=== PATIENT | female | born 1945 | race Caucasian/White ===

== ENCOUNTER 2017-05-17 15:15 | Inpatient (IN) | payer MEDICARE, BC ==
[~2017-05-17] VITALS: Ht 152.4 cm; Wt 61.1 kg
[~2017-05-17 15:15] MED LIST: ALPR-624 PO; CHOL2000 PO; CLON-529 PO; DULO-31 PO; ESZO2TAB PO; FLUO20CA39 PO; HYDR-3972 PO; MODA200T48 PO; TRAZ-91 PO
[2017-05-17] MEDS ORDERED: ondansetron/PF 4mg/2ml inj IV ONE ×2 (15:35→17:10)
[2017-05-17] MEDS ORDERED: morphine 8mg/ml inj. syringe IV PRN (15:35)
[2017-05-17] MEDS ORDERED: cefTRIAXone 1g/NS 100ml IVPB 100 ML IV ONE (15:35)
[2017-05-17] MEDS ORDERED: normal saline 1000ML IV soln IVB ONE ×2 (15:35→17:10)
[2017-05-17] MEDS ORDERED: morphine 4 MG/ML inj SYRINge IV PRN ×3 (15:40→17:10)
[2017-05-17 16:25] LABS: BASOPHILS # (AUTO) 0.1 X10'3 (0-0.2); BASOPHILS % (AUTO) 0.8 % (0-1); EOSINOPHILS # (AUTO) 0.1 X10'3 (0-0.9); EOSINOPHILS % (AUTO) 1.1 % (0-6); HEMATOCRIT 37.3 % (35.0-45.0); HEMOGLOBIN 12.2 g/dl (12.0-16.0); LYMPHOCYTES # (AUTO) 2.1 X10'3 (1.1-4.8); LYMPHOCYTES % (AUTO) 16.3 % (21-51); MEAN CORPUSCULAR HGB CONC 32.7 % (33.0-36.5); MEAN CORPUSCULAR VOLUME 79.4 FL (78-98); MEAN PLATELET VOLUME 9.1 FL (7.4-10.4); MONOCYTES # (AUTO) 0.8 X10'3 (0-0.9); MONOCYTES % (AUTO) 6.4 % (2-12); NEUTROPHILS # (AUTO) 9.5 X10'3 (1.8-7.7); NEUTROPHILS % (AUTO) 75.4 % (42-75); PLATELET COUNT 249 X10'3 (140-440); RED BLOOD COUNT 4.69 X10'6 (4.20-5.60); RED CELL DISTRIBUTION WIDTH 18.2 % (11.5-14.5); WHITE BLOOD COUNT 12.7 X10'3 (4.5-11.0)
[2017-05-17 16:38] LABS: ALANINE AMINOTRANSFERASE 31 U/L (12-78); ALBUMIN 3.5 G/DL (3.4-5.0); ALBUMIN/GLOBULIN RATIO 0.9 (1.1-1.5); ALKALINE PHOSPHATASE 179 IU/L (46-116); ANION GAP 11 (8-16); ASPARTATE AMINO TRANSFERASE 16 U/L (10-37); BILIRUBIN,TOTAL 0.5 MG/DL (0.1-1.0); BLOOD UREA NITROGEN 12 MG/DL (7-18); BUN/CREATININE RATIO 14.6 (6.6-38.0); CALCIUM 8.9 MG/DL (8.5-10.1); CHLORIDE 102 MMOL/L (99-107); CREATININE 0.82 MG/DL (0.40-0.90); GLUCOSE 128 MG/DL (70-104); LIPASE 59 U/L (73-393); POTASSIUM 3.9 MMOL/L (3.5-5.1); SODIUM 139 MMOL/L (135-145); TOTAL CARBON DIOXIDE 26.3 MMOL/L (24-32); TOTAL PROTEIN 7.6 G/DL (6.4-8.2); eGFR 69 ML/MIN
[2017-05-17] MEDS: morphine 4 MG/ML inj SYRINge IV PRN ×3 (17:21→22:32)
[2017-05-17] MEDS ORDERED: piperacillin/tazo 3.375gm/50ml 50 ML IV ONE (18:10)
[2017-05-17 19:19] LABS: CLARITY,URINE Clear (Clear); COLOR,URINE Yellow (Yellow); GLUCOSE, URINE Negative (Neg); KETONES,URINE Negative (Neg); LEUKOCYTE ESTERASE ,URINE Moderate (Neg); NITRITES, URINE Positive (Neg); OCCULT BLOOD,URINE Negative (Neg); PROTEIN,URINE Negative (Neg); UROBILINOGEN,URINE 0.2 E.U/dL (0.2-1.0)
[2017-05-17] MEDS ORDERED: ondansetron/PF 4mg/2ml inj IV PRN (19:20)
[2017-05-17] MEDS ORDERED: acetaminophen 325mg tablet PO PRN (19:20)
[2017-05-17] MEDS ORDERED: mag hydrox/Alum hydrox/simeth 30ml oral suspension PO PRN (19:20)
[2017-05-17] MEDS ORDERED: magnesium hydroxide 30ml (MOM) UD suspension PO PRN (19:20)
[2017-05-17 19:28] LABS: UA COLLECTION TYPE CLN CATCH MIDSTREAM
[2017-05-17 19:31] LABS: BACTERIA,URINE 4+ /HPF (Neg); RBC,URINE 0-2 /HPF (0-2); SQUAMOUS EPITHELIAL CELL,UR FEW /LPF (FEW); WBC,URINE 20-30 /HPF (0-4)
[2017-05-17] MEDS: normal saline 1000ml 1,000 ML IV SCH (19:57)
[2017-05-17] MEDS: traZODone 50mg tablet PO SCH (22:32)
[2017-05-18] VITALS (19 sets, daily range): BP systolic 107–157; BP diastolic 65–94
[2017-05-18] MEDS: piperacillin/tazo 3.375gm/50ml 50 ML IV SCH ×4 (00:39→18:00)
[2017-05-18] MEDS: ALPRAZolam 0.5mg tablet PO SCH ×4 (00:39→22:14)
[2017-05-18] MEDS ORDERED: VORT10TA PO (02:05)
[2017-05-18] MEDS ORDERED: TRIA0.2585 PO (02:05)
[2017-05-18] MEDS ORDERED: OXYC-150 PO (02:06)
[2017-05-18] MEDS: normal saline 1000ml 1,000 ML IV SCH ×2 (04:17→15:20)
[2017-05-18 06:31] LABS: BASOPHILS % (AUTO) 0.5 % (0-1); EOSINOPHILS # (AUTO) 0.2 X10'3 (0-0.9); EOSINOPHILS % (AUTO) 2.1 % (0-6); HEMOGLOBIN 10.2 g/dl (12.0-16.0); LYMPHOCYTES # (AUTO) 1.4 X10'3 (1.1-4.8); LYMPHOCYTES % (AUTO) 16.9 % (21-51); MEAN CORPUSCULAR HEMOGLOBIN 25.6 PG (27.0-31.0); MEAN PLATELET VOLUME 9.1 FL (7.4-10.4); MONOCYTES # (AUTO) 0.6 X10'3 (0-0.9); MONOCYTES % (AUTO) 7.4 % (2-12); NEUTROPHILS # (AUTO) 5.9 X10'3 (1.8-7.7); NEUTROPHILS % (AUTO) 73.1 % (42-75); PLATELET COUNT 193 X10'3 (140-440); RED CELL DISTRIBUTION WIDTH 17.2 % (11.5-14.5); WHITE BLOOD COUNT 8.1 X10'3 (4.5-11.0)
[2017-05-18 06:49] LABS: ALANINE AMINOTRANSFERASE 129 U/L (12-78); ALBUMIN 2.7 G/DL (3.4-5.0); ALBUMIN/GLOBULIN RATIO 0.8 (1.1-1.5); ALKALINE PHOSPHATASE 234 IU/L (46-116); ANION GAP 8 (8-16); ASPARTATE AMINO TRANSFERASE 172 U/L (10-37); BILIRUBIN,TOTAL 0.7 MG/DL (0.1-1.0); BLOOD UREA NITROGEN 8 MG/DL (7-18); BUN/CREATININE RATIO 11.1 (6.6-38.0); CALCIUM 8.1 MG/DL (8.5-10.1); CHLORIDE 109 MMOL/L (99-107); CREATININE 0.72 MG/DL (0.40-0.90); GLUCOSE 104 MG/DL (70-104); SODIUM 143 MMOL/L (135-145); TOTAL CARBON DIOXIDE 26.2 MMOL/L (24-32); TOTAL PROTEIN 6.2 G/DL (6.4-8.2); eGFR 80 ML/MIN
[2017-05-18] MEDS: duloxetine 30mg CAPSULE.DR PO SCH (06:58)
[2017-05-18] MEDS: FLUoxetine 20mg capsule PO SCH (06:59)
[2017-05-18] MEDS: modafinil 100mg tablet PO SCH (06:59)
[2017-05-18] MEDS ORDERED: ringers solution, lacted 1,000 ML IV ONE (11:17)
[2017-05-18] MEDS ORDERED: ringers solution, lacted 1,000 ML IV SCH (11:22)
[2017-05-18] MEDS ORDERED: ondansetron/PF 4mg/2ml inj IV PRN (11:25)
[2017-05-18] MEDS ORDERED: hydrALAZINE 20mg/ml inj. IV PRN (11:25)
[2017-05-18] MEDS ORDERED: fentaNYL/PF 50MCG/1 ML 2ML syringe IV PRN ×2 (11:25)
[2017-05-18] MEDS ORDERED: labetalol 5mg/ml 20ml inj. IV PRN (11:25)
[2017-05-18] MEDS ORDERED: morphine 4 MG/ML inj SYRINge IV PRN ×2 (11:25)
[2017-05-18] MEDS ORDERED: BUPIVAcaine/PF 2.5 mg/ml (0.25%) 30ml vial ONE (11:26)
[2017-05-18] MEDS ORDERED: ceFAZolin 1000mg inj ONE (11:26)
[2017-05-18] MEDS ORDERED: sevoflurane 250ml liquid IH ONE (11:55)
[2017-05-18] MEDS ORDERED: midazolam 2 mg/2 ml injection ONE (12:01)
[2017-05-18] MEDS ORDERED: fentaNYL/PF 50MCG/1 ML 2ML syringe ONE (12:01)
[2017-05-18] MEDS ORDERED: ondansetron/PF 4mg/2ml inj ONE (12:02)
[2017-05-18] MEDS ORDERED: rocuronium 10mg/ml inj IV ONE (12:02)
[2017-05-18] MEDS ORDERED: propofol inj 20 ML IV ONE (12:02)
[2017-05-18] MEDS ORDERED: LIDOcaine 1%/PF (10mg/ml) 5ml vial ONE (12:02)
[2017-05-18] MEDS ORDERED: dexamethasone sod phosphate 4mg/ml inj. ONE (12:02)
[2017-05-18] MEDS ORDERED: glycopyrrolate 0.2mg/ml inj ONE (12:02)
[2017-05-18] MEDS ORDERED: labetalol 5mg/ml 20ml inj. IV ONE (12:33)
[2017-05-18] MEDS ORDERED: HYDROmorphone 1 mg/ml syringe ONE (13:06)
[2017-05-18] MEDS: morphine 4 MG/ML inj SYRINge IV PRN (15:56)
[2017-05-18] MEDS: oxyCODONE/APAP 10/325mg tablet PO PRN (19:20)
[2017-05-18] MEDS: traZODone 50mg tablet PO SCH (21:02)
[2017-05-19] VITALS: BP 147/69
[2017-05-19] MEDS ORDERED: HYDROmorphone 1 mg/ml syringe IM ONE (00:05)
[2017-05-19] MEDS: piperacillin/tazo 3.375gm/50ml 50 ML IV SCH ×5 (00:37→23:52)
[2017-05-19] MEDS: temazepam 15mg capsule PO PRN ×2 (00:37→20:57)
[2017-05-19] MEDS: HYDROmorphone 2mg tablet PO PRN ×3 (00:38→23:53)
[2017-05-19] MEDS: normal saline 1000ml 1,000 ML IV SCH ×3 (01:20→15:24)
[2017-05-19] MEDS: oxyCODONE/APAP 10/325mg tablet PO PRN ×3 (01:42→15:23)
[2017-05-19 05:44] LABS: BASOPHILS % (AUTO) 0 % (0-1); EOSINOPHILS # (AUTO) 0.1 X10'3 (0-0.9); EOSINOPHILS % (AUTO) 1.2 % (0-6); HEMATOCRIT 32.7 % (35.0-45.0); HEMOGLOBIN 10.6 g/dl (12.0-16.0); LYMPHOCYTES # (AUTO) 0.9 X10'3 (1.1-4.8); LYMPHOCYTES % (AUTO) 8.7 % (21-51); MEAN CORPUSCULAR HEMOGLOBIN 26.2 PG (27.0-31.0); MEAN CORPUSCULAR HGB CONC 32.6 % (33.0-36.5); MEAN CORPUSCULAR VOLUME 80.2 FL (78-98); MEAN PLATELET VOLUME 9.5 FL (7.4-10.4); MONOCYTES # (AUTO) 0.4 X10'3 (0-0.9); MONOCYTES % (AUTO) 4.3 % (2-12); NEUTROPHILS % (AUTO) 85.8 % (42-75); PLATELET COUNT 216 X10'3 (140-440); RED BLOOD COUNT 4.07 X10'6 (4.20-5.60); RED CELL DISTRIBUTION WIDTH 17.5 % (11.5-14.5); WHITE BLOOD COUNT 10.5 X10'3 (4.5-11.0)
[2017-05-19 05:45] LABS: ALANINE AMINOTRANSFERASE 79 U/L (12-78); ALBUMIN 2.5 G/DL (3.4-5.0); ALBUMIN/GLOBULIN RATIO 0.7 (1.1-1.5); ALKALINE PHOSPHATASE 212 IU/L (46-116); ANION GAP 9 (8-16); ASPARTATE AMINO TRANSFERASE 54 U/L (10-37); BILIRUBIN,TOTAL 1.3 MG/DL (0.1-1.0); BLOOD UREA NITROGEN 7 MG/DL (7-18); BUN/CREATININE RATIO 12.5 (6.6-38.0); CALCIUM 8.2 MG/DL (8.5-10.1); CHLORIDE 104 MMOL/L (99-107); CREATININE 0.56 MG/DL (0.40-0.90); GLUCOSE 140 MG/DL (70-104); POTASSIUM 3.7 MMOL/L (3.5-5.1); SODIUM 140 MMOL/L (135-145); TOTAL CARBON DIOXIDE 26.7 MMOL/L (24-32); TOTAL PROTEIN 6.1 G/DL (6.4-8.2); eGFR > 90 ML/MIN
[2017-05-19 07:00] VITALS: BP 134/65
[2017-05-19] MEDS: ALPRAZolam 0.5mg tablet PO SCH ×3 (07:35→23:52)
[2017-05-19] MEDS: duloxetine 30mg CAPSULE.DR PO SCH (08:00)
[2017-05-19] MEDS: modafinil 100mg tablet PO SCH (08:00)
[2017-05-19] MEDS: FLUoxetine 20mg capsule PO SCH (08:00)
[2017-05-19] MEDS: morphine 4 MG/ML inj SYRINge IV PRN (13:49)
[2017-05-19] MEDS ORDERED: oxyCODONE/APAP 10/325mg tablet PO PRN (18:30)
[2017-05-19] MEDS ORDERED: HYDROmorphone 2mg tablet PO PRN ×2 (18:50→18:55)
[2017-05-19 20:00] VITALS: BP 144/83
[2017-05-19] MEDS: traZODone 50mg tablet PO SCH (20:44)
[2017-05-20] VITALS: BP 131/72
[2017-05-20] MEDS: normal saline 1000ml 1,000 ML IV SCH ×3 (02:00→23:19)
[2017-05-20 04:46] LABS: BASOPHILS % (AUTO) 0.3 % (0-1); EOSINOPHILS # (AUTO) 0.1 X10'3 (0-0.9); EOSINOPHILS % (AUTO) 1.5 % (0-6); HEMATOCRIT 32.6 % (35.0-45.0); HEMOGLOBIN 10.4 g/dl (12.0-16.0); LYMPHOCYTES # (AUTO) 0.9 X10'3 (1.1-4.8); LYMPHOCYTES % (AUTO) 10.2 % (21-51); MEAN CORPUSCULAR HEMOGLOBIN 25.6 PG (27.0-31.0); MEAN CORPUSCULAR HGB CONC 31.9 % (33.0-36.5); MEAN CORPUSCULAR VOLUME 80.2 FL (78-98); MEAN PLATELET VOLUME 9.5 FL (7.4-10.4); MONOCYTES # (AUTO) 0.4 X10'3 (0-0.9); NEUTROPHILS # (AUTO) 7.8 X10'3 (1.8-7.7); PLATELET COUNT 222 X10'3 (140-440); RED BLOOD COUNT 4.07 X10'6 (4.20-5.60); RED CELL DISTRIBUTION WIDTH 17.8 % (11.5-14.5); WHITE BLOOD COUNT 9.3 X10'3 (4.5-11.0)
[2017-05-20 05:34] LABS: ALANINE AMINOTRANSFERASE 54 U/L (12-78); ALBUMIN 2.3 G/DL (3.4-5.0); ALBUMIN/GLOBULIN RATIO 0.6 (1.1-1.5); ALKALINE PHOSPHATASE 238 IU/L (46-116); ANION GAP 7 (8-16); ASPARTATE AMINO TRANSFERASE 28 U/L (10-37); BILIRUBIN,TOTAL 1.4 MG/DL (0.1-1.0); BLOOD UREA NITROGEN 6 MG/DL (7-18); BUN/CREATININE RATIO 10.2 (6.6-38.0); CALCIUM 8.4 MG/DL (8.5-10.1); CHLORIDE 105 MMOL/L (99-107); CREATININE 0.59 MG/DL (0.40-0.90); GLUCOSE 110 MG/DL (70-104); POTASSIUM 3.7 MMOL/L (3.5-5.1); SODIUM 141 MMOL/L (135-145); TOTAL CARBON DIOXIDE 28.8 MMOL/L (24-32); TOTAL PROTEIN 6.1 G/DL (6.4-8.2); eGFR > 90 ML/MIN
[2017-05-20] MEDS: HYDROmorphone 2mg tablet PO PRN ×4 (05:45→20:32)
[2017-05-20] MEDS: piperacillin/tazo 3.375gm/50ml 50 ML IV SCH ×4 (05:45→23:18)
[2017-05-20 07:37] VITALS: BP 134/78
[2017-05-20] MEDS: FLUoxetine 20mg capsule PO SCH (08:00)
[2017-05-20] MEDS: modafinil 100mg tablet PO SCH (08:00)
[2017-05-20] MEDS: duloxetine 30mg CAPSULE.DR PO SCH (08:00)
[2017-05-20] MEDS: ALPRAZolam 0.5mg tablet PO SCH ×3 (08:55→23:18)
[2017-05-20 11:33] VITALS: BP 135/72
[2017-05-20] MEDS ORDERED: lactulose 20gm/30ml cup PO ONE (11:35)
[2017-05-20] MEDS: methylnaltrexone br 12mg/0.6ml inj***SubQ only SQ SCH (12:04)
[2017-05-20 18:00] VITALS: BP 136/83
[2017-05-20] MEDS: lactobacillus rhamnosus 10,000 MMU CELLS/CAPSULE PO SCH (19:27)
[2017-05-20] MEDS: lactulose 20gm/30ml cup PO SCH (19:27)
[2017-05-20] MEDS: traZODone 50mg tablet PO SCH (20:31)
[2017-05-20] MEDS: oxyCODONE/APAP 10/325mg tablet PO PRN (21:52)
[2017-05-21] VITALS: BP 131/76
[2017-05-21] MEDS: HYDROmorphone 2mg tablet PO PRN ×5 (00:50→20:36)
[2017-05-21] MEDS: temazepam 15mg capsule PO PRN (00:50)
[2017-05-21 05:31] LABS: BASOPHILS % (AUTO) 0.3 % (0-1); EOSINOPHILS # (AUTO) 0.1 X10'3 (0-0.9); EOSINOPHILS % (AUTO) 1.8 % (0-6); HEMATOCRIT 31.2 % (35.0-45.0); HEMOGLOBIN 10.1 g/dl (12.0-16.0); LYMPHOCYTES # (AUTO) 1.3 X10'3 (1.1-4.8); LYMPHOCYTES % (AUTO) 16.4 % (21-51); MEAN CORPUSCULAR HGB CONC 32.5 % (33.0-36.5); MEAN PLATELET VOLUME 9.2 FL (7.4-10.4); MONOCYTES # (AUTO) 0.5 X10'3 (0-0.9); MONOCYTES % (AUTO) 6.5 % (2-12); PLATELET COUNT 205 X10'3 (140-440); RED BLOOD COUNT 3.89 X10'6 (4.20-5.60); RED CELL DISTRIBUTION WIDTH 17.2 % (11.5-14.5)
[2017-05-21 05:44] LABS: ALANINE AMINOTRANSFERASE 43 U/L (12-78); ALBUMIN 2.2 G/DL (3.4-5.0); ALBUMIN/GLOBULIN RATIO 0.6 (1.1-1.5); ALKALINE PHOSPHATASE 267 IU/L (46-116); ANION GAP 9 (8-16); ASPARTATE AMINO TRANSFERASE 21 U/L (10-37); BLOOD UREA NITROGEN 6 MG/DL (7-18); BUN/CREATININE RATIO 11.1 (6.6-38.0); CALCIUM 8.1 MG/DL (8.5-10.1); CHLORIDE 106 MMOL/L (99-107); CREATININE 0.54 MG/DL (0.40-0.90); GLUCOSE 112 MG/DL (70-104); SODIUM 142 MMOL/L (135-145); TOTAL CARBON DIOXIDE 26.9 MMOL/L (24-32); TOTAL PROTEIN 6.1 G/DL (6.4-8.2); eGFR > 90 ML/MIN
[2017-05-21] MEDS: piperacillin/tazo 3.375gm/50ml 50 ML IV SCH ×3 (05:47→17:15)
[2017-05-21] MEDS ORDERED: magnesium 2GM in 50ml NS 50 ML IV PRN (06:15)
[2017-05-21] MEDS ORDERED: magnesium 4gm in 100ml NS 100 ML IV PRN (06:15)
[2017-05-21] MEDS ORDERED: magnesium Cl slow-release 64mg tablet PO PRN (06:15)
[2017-05-21] MEDS ORDERED: potassium Cl 20 mEq SR tablet PO PRN (06:15)
[2017-05-21] MEDS ORDERED: potassium Cl 40MEQ/NS 500ml 500 ML IV PRN ×2 (06:15)
[2017-05-21 07:02] VITALS: BP 146/88
[2017-05-21] MEDS: FLUoxetine 20mg capsule PO SCH (07:44)
[2017-05-21] MEDS: lactulose 20gm/30ml cup PO SCH (07:44)
[2017-05-21] MEDS: duloxetine 30mg CAPSULE.DR PO SCH (07:44)
[2017-05-21] MEDS: modafinil 100mg tablet PO SCH (07:44)
[2017-05-21] MEDS: lactobacillus rhamnosus 10,000 MMU CELLS/CAPSULE PO SCH ×2 (07:56→20:32)
[2017-05-21] MEDS: potassium Cl 20 mEq SR tablet PO PRN ×3 (07:56→15:56)
[2017-05-21] MEDS: ALPRAZolam 0.5mg tablet PO SCH ×2 (07:56→15:56)
[2017-05-21] MEDS ORDERED: methylnaltrexone br 12mg/0.6ml inj***SubQ only SQ SCH (08:00)
[2017-05-21 10:50] VITALS: BP 159/80
[2017-05-21] MEDS: normal saline 1000ml 1,000 ML IV SCH ×2 (13:35→23:20)
[2017-05-21 18:00] VITALS: BP 170/70
[2017-05-21] MEDS: cloNIDine 0.1 mg tablet PO PRN (20:32)
[2017-05-21] MEDS: traZODone 50mg tablet PO SCH (20:32)
[2017-05-22] VITALS: BP 112/78
[2017-05-22] MEDS: piperacillin/tazo 3.375gm/50ml 50 ML IV SCH ×5 (00:03→23:37)
[2017-05-22] MEDS: oxyCODONE/APAP 10/325mg tablet PO PRN ×4 (01:14→17:47)
[2017-05-22] MEDS: normal saline 1000ml 1,000 ML IV SCH ×2 (05:11→16:34)
[2017-05-22 05:23] LABS: BASOPHILS % (AUTO) 0.5 % (0-1); EOSINOPHILS # (AUTO) 0.3 X10'3 (0-0.9); HEMATOCRIT 29.9 % (35.0-45.0); HEMOGLOBIN 9.8 g/dl (12.0-16.0); LYMPHOCYTES # (AUTO) 1.3 X10'3 (1.1-4.8); LYMPHOCYTES % (AUTO) 19.2 % (21-51); MEAN CORPUSCULAR HEMOGLOBIN 26.1 PG (27.0-31.0); MEAN CORPUSCULAR HGB CONC 32.9 % (33.0-36.5); MEAN CORPUSCULAR VOLUME 79.4 FL (78-98); MEAN PLATELET VOLUME 8.7 FL (7.4-10.4); MONOCYTES # (AUTO) 0.6 X10'3 (0-0.9); MONOCYTES % (AUTO) 8.9 % (2-12); NEUTROPHILS # (AUTO) 4.6 X10'3 (1.8-7.7); NEUTROPHILS % (AUTO) 67.4 % (42-75); PLATELET COUNT 239 X10'3 (140-440); RED BLOOD COUNT 3.76 X10'6 (4.20-5.60); RED CELL DISTRIBUTION WIDTH 17.6 % (11.5-14.5); WHITE BLOOD COUNT 6.9 X10'3 (4.5-11.0)
[2017-05-22 05:49] LABS: ALANINE AMINOTRANSFERASE 42 U/L (12-78); ALBUMIN 2.2 G/DL (3.4-5.0); ALBUMIN/GLOBULIN RATIO 0.6 (1.1-1.5); ALKALINE PHOSPHATASE 377 IU/L (46-116); ANION GAP 8 (8-16); ASPARTATE AMINO TRANSFERASE 32 U/L (10-37); BILIRUBIN,TOTAL 1.1 MG/DL (0.1-1.0); BLOOD UREA NITROGEN 4 MG/DL (7-18); BUN/CREATININE RATIO 7.1 (6.6-38.0); CALCIUM 8.5 MG/DL (8.5-10.1); CHLORIDE 107 MMOL/L (99-107); CREATININE 0.56 MG/DL (0.40-0.90); GLUCOSE 92 MG/DL (70-104); MAGNESIUM 1.8 MG/DL (1.5-2.4); POTASSIUM 4.3 MMOL/L (3.5-5.1); SODIUM 142 MMOL/L (135-145); TOTAL CARBON DIOXIDE 26.8 MMOL/L (24-32); eGFR > 90 ML/MIN
[2017-05-22] MEDS: FLUoxetine 20mg capsule PO SCH ×2 (08:00→08:10)
[2017-05-22] MEDS: modafinil 100mg tablet PO SCH (08:00)
[2017-05-22] MEDS: methylnaltrexone br 12mg/0.6ml inj***SubQ only SQ SCH (08:00)
[2017-05-22] MEDS: duloxetine 30mg CAPSULE.DR PO SCH ×2 (08:00→08:10)
[2017-05-22] MEDS: ALPRAZolam 0.5mg tablet PO SCH ×3 (08:09→16:32)
[2017-05-22] MEDS: lactobacillus rhamnosus 10,000 MMU CELLS/CAPSULE PO SCH ×2 (08:10→19:43)
[2017-05-22 08:30] VITALS: BP 147/81
[2017-05-22 12:26] VITALS: BP 154/60
[2017-05-22] MEDS: morphine 4 MG/ML inj SYRINge IV PRN (16:39)
[2017-05-22 18:00] VITALS: BP 142/95
[2017-05-22] MEDS: traZODone 50mg tablet PO SCH (20:48)
[2017-05-22] MEDS: temazepam 15mg capsule PO PRN (21:58)
[2017-05-23] VITALS: BP 161/86
[2017-05-23] MEDS: oxyCODONE/APAP 10/325mg tablet PO PRN ×3 (03:23→16:52)
[2017-05-23] MEDS: normal saline 1000ml 1,000 ML IV SCH (05:36)
[2017-05-23] MEDS: piperacillin/tazo 3.375gm/50ml 50 ML IV SCH ×4 (05:36→23:55)
[2017-05-23 05:47] LABS: MAGNESIUM 1.7 MG/DL (1.5-2.4); POTASSIUM 3.6 MMOL/L (3.5-5.1)
[2017-05-23] MEDS: ALPRAZolam 0.5mg tablet PO SCH ×3 (07:40→14:40)
[2017-05-23] MEDS: lactobacillus rhamnosus 10,000 MMU CELLS/CAPSULE PO SCH ×2 (07:40→20:30)
[2017-05-23] MEDS: duloxetine 30mg CAPSULE.DR PO SCH (07:41)
[2017-05-23] MEDS: FLUoxetine 20mg capsule PO SCH (07:44)
[2017-05-23] MEDS: modafinil 100mg tablet PO SCH (07:44)
[2017-05-23 08:00] VITALS: BP 174/64
[2017-05-23] MEDS ORDERED: oxyCODONE/APAP 10/325mg tablet PO STA (08:18)
[2017-05-23] MEDS ORDERED: bisacodyl 10mg suppository rectal RC PRN ×2 (17:55)
[2017-05-23] MEDS ORDERED: mineral oil 133ml enema RC PRN (17:55)
[2017-05-23] MEDS ORDERED: magnesium citrate 296ml oral solution PO ONE (18:00)
[2017-05-23 18:55] VITALS: BP 142/72
[2017-05-23] MEDS: traZODone 50mg tablet PO SCH (20:30)
[2017-05-23] MEDS: clonazePAM 1mg tablet PO SCH (20:30)
[2017-05-23] MEDS: diatr meglu/diatrizoate 30ml oral sol.-(3 dose) bottle PO SCH (20:31)
[2017-05-23] MEDS: temazepam 15mg capsule PO PRN (20:42)
[2017-05-24] VITALS (18 sets, daily range): BP systolic 129–163; BP diastolic 70–100
[2017-05-24] MEDS: oxyCODONE/APAP 10/325mg tablet PO PRN ×4 (01:14→15:48)
[2017-05-24 05:37] LABS: MAGNESIUM 1.9 MG/DL (1.5-2.4); POTASSIUM 3.2 MMOL/L (3.5-5.1)
[2017-05-24] MEDS: piperacillin/tazo 3.375gm/50ml 50 ML IV SCH ×3 (06:31→20:37)
[2017-05-24] MEDS: diatr meglu/diatrizoate 30ml oral sol.-(3 dose) bottle PO SCH ×2 (06:50→09:35)
[2017-05-24] MEDS: lactobacillus rhamnosus 10,000 MMU CELLS/CAPSULE PO SCH ×2 (07:22→20:37)
[2017-05-24] MEDS: clonazePAM 1mg tablet PO SCH ×2 (07:23→20:37)
[2017-05-24] MEDS: duloxetine 30mg CAPSULE.DR PO SCH (07:28)
[2017-05-24] MEDS: FLUoxetine 20mg capsule PO SCH (07:40)
[2017-05-24] MEDS: modafinil 100mg tablet PO SCH (07:40)
[2017-05-24] MEDS: methylnaltrexone br 12mg/0.6ml inj***SubQ only SQ SCH (07:41)
[2017-05-24] MEDS ORDERED: iohexol 300mg/ml 100ml inj. ONE (09:43)
[2017-05-24 10:43] LABS: BASOPHILS % (AUTO) 0.4 % (0-1); EOSINOPHILS # (AUTO) 0.1 X10'3 (0-0.9); EOSINOPHILS % (AUTO) 2.7 % (0-6); HEMATOCRIT 30.5 % (35.0-45.0); LYMPHOCYTES # (AUTO) 0.9 X10'3 (1.1-4.8); LYMPHOCYTES % (AUTO) 19.3 % (21-51); MEAN CORPUSCULAR HEMOGLOBIN 25.8 PG (27.0-31.0); MEAN CORPUSCULAR HGB CONC 32.9 % (33.0-36.5); MEAN CORPUSCULAR VOLUME 78.5 FL (78-98); MEAN PLATELET VOLUME 7.8 FL (7.4-10.4); MONOCYTES # (AUTO) 0.4 X10'3 (0-0.9); MONOCYTES % (AUTO) 8.5 % (2-12); NEUTROPHILS # (AUTO) 3.4 X10'3 (1.8-7.7); NEUTROPHILS % (AUTO) 69.1 % (42-75); PLATELET COUNT 277 X10'3 (140-440); RED BLOOD COUNT 3.88 X10'6 (4.20-5.60); RED CELL DISTRIBUTION WIDTH 17.9 % (11.5-14.5); WHITE BLOOD COUNT 4.9 X10'3 (4.5-11.0)
[2017-05-24 10:57] LABS: ALBUMIN 2.3 G/DL (3.4-5.0); ANION GAP 10 (8-16); BLOOD UREA NITROGEN 4 MG/DL (7-18); BUN/CREATININE RATIO 6.6 (6.6-38.0); CALCIUM 8.8 MG/DL (8.5-10.1); CHLORIDE 103 MMOL/L (99-107); CREATININE 0.61 MG/DL (0.40-0.90); GLUCOSE 161 MG/DL (70-104); POTASSIUM 3.3 MMOL/L (3.5-5.1); SODIUM 141 MMOL/L (135-145); TOTAL CARBON DIOXIDE 27.9 MMOL/L (24-32); eGFR > 90 ML/MIN
[2017-05-24] MEDS ORDERED: morphine 2 MG/ML inj. syringe IV PRN (11:55)
[2017-05-24] MEDS: cloNIDine 0.1 mg tablet PO PRN (12:34)
[2017-05-24] MEDS ORDERED: magnesium 2GM in 50ml NS 50 ML IV PRN (13:50)
[2017-05-24] MEDS ORDERED: magnesium 4gm in 100ml NS 100 ML IV PRN (13:50)
[2017-05-24] MEDS ORDERED: potassium Cl 40MEQ/NS 500ml 500 ML IV PRN ×2 (13:50)
[2017-05-24] MEDS ORDERED: magnesium Cl slow-release 64mg tablet PO PRN (13:50)
[2017-05-24] MEDS ORDERED: potassium Cl 20 mEq SR tablet PO PRN (13:50)
[2017-05-24] MEDS ORDERED: midazolam 2 mg/2 ml injection ONE (16:34)
[2017-05-24] MEDS ORDERED: fentaNYL/PF 50MCG/1 ML 2ML syringe ONE ×2 (16:34→17:38)
[2017-05-24] MEDS: metroNIDAZOLE-Flagyl 500mg/NS 100 ML IV SCH (18:28)
[2017-05-24] MEDS: temazepam 15mg capsule PO PRN (20:37)
[2017-05-24] MEDS: traZODone 50mg tablet PO SCH (20:37)
[2017-05-25] VITALS: BP 145/61
[2017-05-25] MEDS: piperacillin/tazo 3.375gm/50ml 50 ML IV SCH ×5 (00:41→23:46)
[2017-05-25] MEDS: oxyCODONE/APAP 10/325mg tablet PO PRN ×4 (01:16→20:16)
[2017-05-25] MEDS: metroNIDAZOLE-Flagyl 500mg/NS 100 ML IV SCH ×3 (01:30→17:48)
[2017-05-25] MEDS: temazepam 15mg capsule PO PRN (02:10)
[2017-05-25 05:34] LABS: MAGNESIUM 2.2 MG/DL (1.5-2.4); POTASSIUM 4.2 MMOL/L (3.5-5.1)
[2017-05-25 07:07] VITALS: BP 121/76
[2017-05-25] MEDS: modafinil 100mg tablet PO SCH (08:00)
[2017-05-25] MEDS: FLUoxetine 20mg capsule PO SCH (08:00)
[2017-05-25] MEDS: duloxetine 30mg CAPSULE.DR PO SCH (08:00)
[2017-05-25] MEDS: lactobacillus rhamnosus 10,000 MMU CELLS/CAPSULE PO SCH ×2 (08:15→20:10)
[2017-05-25] MEDS: clonazePAM 1mg tablet PO SCH ×2 (08:15→20:10)
[2017-05-25 11:19] VITALS: BP 167/80
[2017-05-25 12:15] LABS: ALBUMIN 2.8 G/DL (3.4-5.0); ANION GAP 13 (8-16); BLOOD UREA NITROGEN 7 MG/DL (7-18); BUN/CREATININE RATIO 8.3 (6.6-38.0); CALCIUM 9.5 MG/DL (8.5-10.1); CHLORIDE 104 MMOL/L (99-107); CREATININE 0.84 MG/DL (0.40-0.90); GLUCOSE 132 MG/DL (70-104); SODIUM 142 MMOL/L (135-145); TOTAL CARBON DIOXIDE 25.5 MMOL/L (24-32); eGFR 67 ML/MIN
[2017-05-25 20:00] VITALS: BP 133/43
[2017-05-25] MEDS: traZODone 50mg tablet PO SCH (20:10)
[2017-05-26] VITALS: BP 119/80
[2017-05-26] MEDS: metroNIDAZOLE-Flagyl 500mg/NS 100 ML IV SCH ×4 (00:17→23:54)
[2017-05-26] MEDS: oxyCODONE/APAP 10/325mg tablet PO PRN (01:46)
[2017-05-26 06:09] LABS: MAGNESIUM 2.1 MG/DL (1.5-2.4); POTASSIUM 3.6 MMOL/L (3.5-5.1)
[2017-05-26 08:00] VITALS: BP 124/74
[2017-05-26] MEDS: modafinil 100mg tablet PO SCH (08:00)
[2017-05-26] MEDS: duloxetine 30mg CAPSULE.DR PO SCH (08:00)
[2017-05-26] MEDS: FLUoxetine 20mg capsule PO SCH (08:00)
[2017-05-26] MEDS: piperacillin/tazo 3.375gm/50ml 50 ML IV SCH ×5 (08:02→23:11)
[2017-05-26] MEDS: clonazePAM 1mg tablet PO SCH ×3 (08:02→20:23)
[2017-05-26] MEDS: methylnaltrexone br 12mg/0.6ml inj***SubQ only SQ SCH (08:02)
[2017-05-26] MEDS: lactobacillus rhamnosus 10,000 MMU CELLS/CAPSULE PO SCH ×2 (08:02→20:23)
[2017-05-26] MEDS ORDERED: HYDROmorphone/NS 1 mg/ml CADD 50 ML IV SCH (10:55)
[2017-05-26 11:00] VITALS: BP 139/82
[2017-05-26] MEDS ORDERED: CADD PCA waste documentation MC SCH (11:10)
[2017-05-26] MEDS ORDERED: naloxone 0.4 mg/ml inj IV PRN (11:15)
[2017-05-26] MEDS: MORPHINE CADD 5 MG/ML 50ML IV SCH ×6 (13:30→23:00)
[2017-05-26 18:30] VITALS: BP 132/70
[2017-05-26] MEDS: docusate sod 100mg capsule PO SCH (20:00)
[2017-05-26] MEDS: traZODone 50mg tablet PO SCH (20:23)
[2017-05-26] MEDS: temazepam 15mg capsule PO PRN (22:52)
[2017-05-27 00:02] VITALS: BP 132/70
[2017-05-27] MEDS: MORPHINE CADD 5 MG/ML 50ML IV SCH ×12 (01:00→23:00)
[2017-05-27] MEDS: cloNIDine 0.1 mg tablet PO PRN (01:14)
[2017-05-27 04:44] LABS: BASOPHILS % (AUTO) 0.7 % (0-1); EOSINOPHILS # (AUTO) 0.3 X10'3 (0-0.9); EOSINOPHILS % (AUTO) 6.2 % (0-6); HEMATOCRIT 30.5 % (35.0-45.0); HEMOGLOBIN 9.7 g/dl (12.0-16.0); LYMPHOCYTES # (AUTO) 1.4 X10'3 (1.1-4.8); MEAN CORPUSCULAR HEMOGLOBIN 25.5 PG (27.0-31.0); MEAN CORPUSCULAR HGB CONC 31.8 % (33.0-36.5); MEAN CORPUSCULAR VOLUME 80.2 FL (78-98); MEAN PLATELET VOLUME 8.3 FL (7.4-10.4); MONOCYTES # (AUTO) 0.4 X10'3 (0-0.9); MONOCYTES % (AUTO) 7.7 % (2-12); NEUTROPHILS % (AUTO) 58.4 % (42-75); PLATELET COUNT 299 X10'3 (140-440); RED CELL DISTRIBUTION WIDTH 17.3 % (11.5-14.5); WHITE BLOOD COUNT 5.2 X10'3 (4.5-11.0)
[2017-05-27 04:51] LABS: PROTHROMBIN TIME 10.5 SECONDS (9.0-12.0)
[2017-05-27 05:07] LABS: ALBUMIN 2.4 G/DL (3.4-5.0); ANION GAP 10 (8-16); BLOOD UREA NITROGEN 10 MG/DL (7-18); BUN/CREATININE RATIO 17.5 (6.6-38.0); CALCIUM 8.6 MG/DL (8.5-10.1); CHLORIDE 108 MMOL/L (99-107); CREATININE 0.57 MG/DL (0.40-0.90); GLUCOSE 111 MG/DL (70-104); MAGNESIUM 2.2 MG/DL (1.5-2.4); POTASSIUM 3.4 MMOL/L (3.5-5.1); SODIUM 143 MMOL/L (135-145); eGFR > 90 ML/MIN
[2017-05-27] MEDS: potassium Cl 20 mEq SR tablet PO PRN ×2 (05:31→13:23)
[2017-05-27] MEDS: piperacillin/tazo 3.375gm/50ml 50 ML IV SCH ×3 (06:32→17:11)
[2017-05-27 06:53] VITALS: BP 142/74
[2017-05-27] MEDS: modafinil 100mg tablet PO SCH (08:00)
[2017-05-27] MEDS: duloxetine 30mg CAPSULE.DR PO SCH (08:00)
[2017-05-27] MEDS: FLUoxetine 20mg capsule PO SCH (08:00)
[2017-05-27] MEDS: docusate sod 100mg capsule PO SCH ×2 (08:00→20:00)
[2017-05-27] MEDS: lactobacillus rhamnosus 10,000 MMU CELLS/CAPSULE PO SCH ×2 (08:41→20:32)
[2017-05-27] MEDS: clonazePAM 1mg tablet PO SCH ×3 (08:41→20:33)
[2017-05-27] MEDS: metroNIDAZOLE-Flagyl 500mg/NS 100 ML IV SCH (08:41)
[2017-05-27 11:03] VITALS: BP 103/55
[2017-05-27] MEDS ORDERED: TRINTELLIX PO ×2 (16:34→16:35)
[2017-05-27] MEDS ORDERED: CYAN-19 PO (16:36)
[2017-05-27] MEDS: metroNIDAZOLE 500mg tablet PO SCH ×2 (17:10→23:33)
[2017-05-27] MEDS: nystatin 15 GM powder TP SCH ×2 (17:11→20:33)
[2017-05-27 17:18] LABS: CLARITY,URINE CLEAR (Clear); COLOR,URINE YELLOW (Yellow); GLUCOSE, URINE NEGATIVE (Neg); KETONES,URINE NEGATIVE (Neg); LEUKOCYTE ESTERASE ,URINE NEGATIVE (Neg); NITRITES, URINE NEGATIVE (Neg); OCCULT BLOOD,URINE NEGATIVE (Neg); PROTEIN,URINE NEGATIVE (Neg); UROBILINOGEN,URINE 0.2 E.U/dL (0.2-1.0)
[2017-05-27 17:25] LABS: UA COLLECTION TYPE NON-SPECIFIED
[2017-05-27] MEDS ORDERED: magnesium 2GM in 50ml NS 50 ML IV PRN (17:45)
[2017-05-27] MEDS ORDERED: potassium Cl 20 mEq SR tablet PO PRN ×2 (17:45)
[2017-05-27] MEDS ORDERED: magnesium Cl slow-release 64mg tablet PO PRN (17:45)
[2017-05-27] MEDS ORDERED: magnesium 4gm in 100ml NS 100 ML IV PRN (17:45)
[2017-05-27] MEDS ORDERED: potassium Cl 40MEQ/NS 500ml 500 ML IV PRN ×2 (17:45)
[2017-05-27 20:00] VITALS: BP 144/87
[2017-05-27] MEDS: traZODone 50mg tablet PO SCH (20:32)
[2017-05-27] MEDS: TRINTELLIX 10MG TABLET PO SCH (20:33)
[2017-05-27] MEDS ORDERED: temazepam 15mg capsule PO SCH (21:00)
[2017-05-27 23:50] VITALS: BP 147/71
[2017-05-28] MEDS: MORPHINE CADD 5 MG/ML 50ML IV SCH ×6 (01:00→11:00)
[2017-05-28] MEDS: metroNIDAZOLE 500mg tablet PO SCH ×2 (07:46→14:56)
[2017-05-28] MEDS: lactobacillus rhamnosus 10,000 MMU CELLS/CAPSULE PO SCH ×2 (07:47→19:56)
[2017-05-28] MEDS: cyanocobalamin 500mcg tablet PO SCH (07:47)
[2017-05-28] MEDS: clonazePAM 1mg tablet PO SCH ×2 (07:47→19:55)
[2017-05-28] MEDS: docusate sod 100mg capsule PO SCH ×2 (07:47→20:00)
[2017-05-28] MEDS: modafinil 100mg tablet PO SCH (07:48)
[2017-05-28] MEDS: vitamin D (cholecalciferol) 1,000 unit tablet PO SCH (07:48)
[2017-05-28] MEDS: methylnaltrexone br 12mg/0.6ml inj***SubQ only SQ SCH (07:49)
[2017-05-28] MEDS: nystatin 15 GM powder TP SCH ×2 (07:49→19:57)
[2017-05-28 08:00] VITALS: BP 139/79
[2017-05-28] MEDS ORDERED: vortioxetine HBr 10mg tablet PO SCH (08:00)
[2017-05-28] MEDS ORDERED: oxyCODONE/APAP 10/325mg tablet PO PRN (12:20)
[2017-05-28 19:00] VITALS: BP 140/91
[2017-05-28] MEDS: temazepam 15mg capsule PO PRN (19:55)
[2017-05-28] MEDS: oxyCODONE/APAP 10/325mg tablet PO PRN (19:56)
[2017-05-28] MEDS: TRINTELLIX 10MG TABLET PO SCH (19:56)
[2017-05-28] MEDS: traZODone 50mg tablet PO SCH (19:59)
[2017-05-29] VITALS: BP 148/108
[2017-05-29] MEDS ORDERED: LORazepam 2 mg/ml vial IV ONE (01:55)
[2017-05-29] MEDS: oxyCODONE/APAP 10/325mg tablet PO PRN ×5 (04:45→22:42)
[2017-05-29] MEDS: docusate sod 100mg capsule PO SCH ×2 (08:00→20:20)
[2017-05-29] MEDS: lactobacillus rhamnosus 10,000 MMU CELLS/CAPSULE PO SCH ×2 (08:01→20:20)
[2017-05-29] MEDS: metroNIDAZOLE 500mg tablet PO SCH ×3 (08:01→15:51)
[2017-05-29] MEDS: clonazePAM 1mg tablet PO SCH (08:02)
[2017-05-29] MEDS: cyanocobalamin 500mcg tablet PO SCH (08:02)
[2017-05-29] MEDS: nystatin 15 GM powder TP SCH ×2 (08:03→20:20)
[2017-05-29] MEDS: vitamin D (cholecalciferol) 1,000 unit tablet PO SCH (08:03)
[2017-05-29] MEDS: modafinil 100mg tablet PO SCH (08:03)
[2017-05-29 08:13] VITALS: BP 154/79
[2017-05-29 11:23] VITALS: BP 136/74
[2017-05-29] MEDS ORDERED: TRINTELLIX 10MG TABLET PO SCH ×2 (14:25→14:32)
[2017-05-29] MEDS ORDERED: morphine 2 MG/ML inj. syringe IV PRN (16:50)
[2017-05-29] MEDS: LORazepam 1 MG tablet PO PRN ×2 (17:09→22:42)
[2017-05-29 19:50] VITALS: BP 132/67
[2017-05-29] MEDS: temazepam 15mg capsule PO PRN (20:19)
[2017-05-29] MEDS: traZODone 50mg tablet PO SCH (20:20)
[2017-05-29] MEDS: diatr meglu/diatrizoate 30ml oral sol.-(3 dose) bottle PO SCH (20:20)
[2017-05-29] MEDS: ciprofloxacin lact 400MG/200ML 200 ML IV SCH (20:21)
[2017-05-29 23:45] VITALS: BP 145/88
[2017-05-30] MEDS: metroNIDAZOLE 500mg tablet PO SCH ×2 (00:02→08:02)
[2017-05-30] MEDS: metroNIDAZOLE-Flagyl 500mg/NS 100 ML IV SCH ×2 (00:02→08:00)
[2017-05-30] MEDS: diatr meglu/diatrizoate 30ml oral sol.-(3 dose) bottle PO SCH (07:00)
[2017-05-30] MEDS: docusate sod 100mg capsule PO SCH (07:48)
[2017-05-30] MEDS: methylnaltrexone br 12mg/0.6ml inj***SubQ only SQ SCH (08:00)
[2017-05-30] MEDS: ciprofloxacin lact 400MG/200ML 200 ML IV SCH (08:02)
[2017-05-30] MEDS: lactobacillus rhamnosus 10,000 MMU CELLS/CAPSULE PO SCH (08:02)
[2017-05-30] MEDS: cyanocobalamin 500mcg tablet PO SCH (08:03)
[2017-05-30] MEDS: modafinil 100mg tablet PO SCH (08:03)
[2017-05-30] MEDS: vitamin D (cholecalciferol) 1,000 unit tablet PO SCH (08:03)
[2017-05-30] MEDS: LORazepam 1 MG tablet PO PRN (08:04)
[2017-05-30] MEDS: nystatin 15 GM powder TP SCH (08:04)
[2017-05-30 08:09] LABS: BLOOD UREA NITROGEN 9 MG/DL (7-18); CREATININE 0.71 MG/DL (0.40-0.90); eGFR 82 ML/MIN
[2017-05-30] MEDS: oxyCODONE/APAP 10/325mg tablet PO PRN ×2 (08:11→14:27)
[2017-05-30 08:20] VITALS: BP 139/90
[2017-05-30] MEDS ORDERED: iohexol 300mg/ml 100ml inj. ONE (11:13)
[2017-05-30 12:19] VITALS: BP 151/76
[2017-05-30] MEDS ORDERED: METR500T4 PO (13:59)
[2017-05-30] MEDS ORDERED: LEVO500T2 PO (13:59)
== END 2017-05-30 16:00 | disposition home or self-care (01) | DRG 339 ==
LOC: ER 15:15 → ED HOLD 19:20 → SUR 3N 05-18 15:47
PROVIDERS: ADMIT Internal Medicine; ATTEND Internal Medicine
PROC: 0DTJ4ZZ Resection of Appendix, Percutaneous Endoscopic Approach (ICD-10-PCS; principal; 2017-05-18 11:55)
PROC: 0W9J30Z Drainage of Pelvic Cavity with Drainage Device, Percutaneous Approach (ICD-10-PCS; 2017-05-24)
PROC: BW211ZZ Computerized Tomography (CT Scan) of Abdomen and Pelvis using Low Osmolar Contrast (ICD-10-PCS; 2017-05-24)
PROC: 0W9G30Z Drainage of Peritoneal Cavity with Drainage Device, Percutaneous Approach (ICD-10-PCS; 2017-05-24)
PROC: BW211ZZ Computerized Tomography (CT Scan) of Abdomen and Pelvis using Low Osmolar Contrast (ICD-10-PCS; 2017-05-30)
DX: K35.2 Acute appendicitis with generalized peritonitis (principal); K91.872 Postprocedural seroma of a digestive system organ or structure following a digestive system procedure; E87.6 Hypokalemia; G89.29 Other chronic pain; M79.7 Fibromyalgia; F32.9 Major depressive disorder, single episode, unspecified; F41.9 Anxiety disorder, unspecified; I10 Essential (primary) hypertension; Y83.8 Other surgical procedures as the cause of abnormal reaction of the patient, or of later complication, without mention of misadventure at the time of the procedure; Z90.11 Acquired absence of right breast and nipple; Z98.84 Bariatric surgery status; Z79.899 Other long term (current) drug therapy; Z85.3 Personal history of malignant neoplasm of breast; Z85.43 Personal history of malignant neoplasm of ovary; Y92.89 Other specified places as the place of occurrence of the external cause
CPT/HCPCS: 36415; 49406; 74021; 74176; 74177; 74181; 80048; 80053; 81001; 81003; 82565; 83690; 83735; 84132; 84520; 85025; 85610; 87070; 87088; 88304; 96365; 96367; 96375; 99152; 99153; 99285; A6212; A6213; A6257; A6258; A7000; C1729; C1758; J0690; J0696; J0744; J1100; J1170; J2001; J2060; J2212; J2250; J2270; J2405; J2543; J2704; J3010; J3420; J3480; J3490; J7030; J7120; Q9963; Q9967

== ENCOUNTER 2017-08-05 11:15 | Emergency (ER) | payer MEDICARE, BC ==
[~2017-08-05] VITALS: Ht 152.4 cm; Wt 52.0 kg
[~2017-08-05 11:15] MED LIST changes: -ALPR-624 PO; +CYAN-19 PO; +DICY10CA88 PO; -DULO-31 PO; -ESZO2TAB PO; -FLUO20CA39 PO; -HYDR-3972 PO; -MODA200T48 PO; +OXYC-150 PO; +TRIA0.2585 PO; +TRINTELLIX PO; +VORT10TA PO
[2017-08-05 12:17] VITALS: BP 145/80
[2017-08-05] MEDS ORDERED: GABA-532 PO (12:29)
[2017-08-05] MEDS ORDERED: HYDR-565 PO (12:32)
[2017-08-05] MEDS ORDERED: ketorolac trometh inj. 60 MG/2 ML VIAL IM ONE (12:35)
[2017-08-05] MEDS ORDERED: oxyCODONE/APAP 10/325mg tablet PO ONE (12:35)
[2017-08-05] MEDS ORDERED: gabapentin 300mg capsule PO ONE (12:35)
== END 2017-08-05 13:10 | disposition home or self-care (01) ==
LOC: ER 11:15
DX: M54.2 Cervicalgia (principal); G89.29 Other chronic pain; E11.9 Type 2 diabetes mellitus without complications; Z86.73 Personal history of transient ischemic attack (TIA), and cerebral infarction without residual deficits; Z85.3 Personal history of malignant neoplasm of breast; Z98.84 Bariatric surgery status; Z98.890 Other specified postprocedural states; Z90.49 Acquired absence of other specified parts of digestive tract; Z79.899 Other long term (current) drug therapy
CPT/HCPCS: 96372; 99284; J1885

== ENCOUNTER 2017-09-18 13:04 | Emergency (ER) | payer MEDICARE, BC ==
[~2017-09-18] VITALS: Ht 152.4 cm; Wt 58.0 kg
[~2017-09-18 13:04] MED LIST changes: +GABA-532 PO
[2017-09-18] MEDS ORDERED: aspirin 81mg tab.chew PO ONE (13:45)
[2017-09-18] MEDS ORDERED: morphine 4 MG/ML inj SYRINge IV ONE (13:45)
[2017-09-18] MEDS ORDERED: nitroGLYCERIN 0.4mg SUBLingual tab SL PRN (13:45)
[2017-09-18 14:20] LABS: BASOPHILS % (AUTO) 0.5 % (0-1); EOSINOPHILS # (AUTO) 0.1 X10'3 (0-0.9); EOSINOPHILS % (AUTO) 2.7 % (0-6); HEMATOCRIT 31.8 % (35.0-45.0); HEMOGLOBIN 10.1 g/dl (12.0-16.0); LYMPHOCYTES # (AUTO) 1.7 X10'3 (1.1-4.8); LYMPHOCYTES % (AUTO) 34.6 % (21-51); MEAN CORPUSCULAR HEMOGLOBIN 23.9 PG (27.0-31.0); MEAN CORPUSCULAR HGB CONC 31.8 % (33.0-36.5); MEAN CORPUSCULAR VOLUME 75.2 FL (78-98); MEAN PLATELET VOLUME 8.1 FL (7.4-10.4); MONOCYTES # (AUTO) 0.5 X10'3 (0-0.9); MONOCYTES % (AUTO) 9.6 % (2-12); NEUTROPHILS # (AUTO) 2.5 X10'3 (1.8-7.7); NEUTROPHILS % (AUTO) 52.6 % (42-75); PLATELET COUNT 309 X10'3 (140-440); RED BLOOD COUNT 4.23 X10'6 (4.20-5.60); RED CELL DISTRIBUTION WIDTH 20.8 % (11.5-14.5); WHITE BLOOD COUNT 4.8 X10'3 (4.5-11.0)
[2017-09-18 14:31] LABS: PARTIAL THROMBOPLASTIN TIME 25 SECONDS (22-32); PROTHROMBIN TIME 10.2 SECONDS (9.0-12.0)
[2017-09-18 14:35] LABS: ALANINE AMINOTRANSFERASE 78 U/L (12-78); ALBUMIN 3.5 G/DL (3.4-5.0); ALBUMIN/GLOBULIN RATIO 0.9 (1.1-1.5); ALKALINE PHOSPHATASE 308 IU/L (46-116); ANION GAP 5 (8-16); ASPARTATE AMINO TRANSFERASE 30 U/L (10-37); BILIRUBIN,TOTAL 0.3 MG/DL (0.1-1.0); BLOOD UREA NITROGEN 12 MG/DL (7-18); BUN/CREATININE RATIO 18.5 (6.6-38.0); CALCIUM 8.8 MG/DL (8.5-10.1); CHLORIDE 99 MMOL/L (99-107); CREATININE 0.65 MG/DL (0.40-0.90); GLUCOSE 111 MG/DL (70-104); POTASSIUM 4.5 MMOL/L (3.5-5.1); SODIUM 134 MMOL/L (135-145); TOTAL CARBON DIOXIDE 29.6 MMOL/L (24-32); TOTAL PROTEIN 7.5 G/DL (6.4-8.2); eGFR 90 ML/MIN
[2017-09-18 14:42] LABS: ANISOCYTOSIS 3+; PLATELET ESTIMATE NORMAL
[2017-09-18 14:43] LABS: HYPOCHROMASIA 2+; MICROCYTOSIS 1+
[2017-09-18 15:51] VITALS: BP 122/71
== END 2017-09-18 16:07 | disposition home or self-care (01) ==
LOC: ER 13:04
DX: S92.901A Unspecified fracture of right foot, initial encounter for closed fracture (principal); F41.9 Anxiety disorder, unspecified; R07.89 Other chest pain; E11.9 Type 2 diabetes mellitus without complications; G89.29 Other chronic pain; Z86.73 Personal history of transient ischemic attack (TIA), and cerebral infarction without residual deficits; Z85.3 Personal history of malignant neoplasm of breast; Z90.49 Acquired absence of other specified parts of digestive tract; Z98.84 Bariatric surgery status; Z98.890 Other specified postprocedural states; Z90.89 Acquired absence of other organs; Z79.899 Other long term (current) drug therapy; W08.XXXA Fall from other furniture, initial encounter; Y93.89 Activity, other specified; Y92.89 Other specified places as the place of occurrence of the external cause; Y99.8 Other external cause status
CPT/HCPCS: 36415; 71045; 73600; 73630; 80053; 82553; 84484; 85025; 85610; 85730; 93005; 96374; 99285; A6449; J2270; L3260

== ENCOUNTER 2018-05-26 22:15 | Emergency (ER) | payer MEDICARE, BC ==
[~2018-05-26] VITALS: Ht 152.4 cm; Wt 59.1 kg
[2018-05-26 22:21] VITALS: BP 159/93
[2018-05-26] MEDS ORDERED: nitroGLYCERIN 0.4mg SUBLingual tab SL PRN (22:35)
[2018-05-26] MEDS ORDERED: aspirin 81mg tab.chew PO ONE (22:35)
--- NOTE | 2018-05-26 22:42 | NUR ---
Pt is very anxious. Her is also here in the ER and she wants to be with him. She did say that once her blood is drawn she is going to go to his side. She refused to get into a gown, she allowed me to put the monitors on her though.
--- NOTE | 2018-05-26 23:12 | NUR ---
PT REFUSING TO STAY IN HER ROOM - MULTIPLE STAFF, RN, , LAB, XRAY HAVE BEEN LOOKING FOR PT AND EVERYTIME WE TURN AROUND SHE IS GONE - SHE IS KINDLY ASKED TO STAY IN HER ROOM SO THAT WE CAN MONITOR HER CONDITION HOWEVER SHE STATES, "I CAN'T LEAVE HIM" (HER IN CURRENTLY ALSO IN ER IN ANTOTHER ROOM) EXPLAINED TO PT THAT WE DON'T HAVE THE CAPABILITY TO MONITOR HER HEART WHILE SHE IS WALKING BACK AND FORTH FROM ROOM TO ROOM. SHE DESIRES TO LEAVE AMA - NOTIFIED. HE IS CURRENTLY IN A STERILE PROCEDURE IN ANOTHER ROOM. WILL START AMA PAPERWORK.
[2018-05-26 23:38] LABS: BASOPHILS # (AUTO) 0.1 X10'3 (0-0.2); BASOPHILS % (AUTO) 1.7 % (0-1); EOSINOPHILS % (AUTO) 0.4 % (0-6); HEMATOCRIT 30.5 % (35.0-45.0); HEMOGLOBIN 9.1 g/dl (12.0-16.0); LYMPHOCYTES # (AUTO) 1.3 X10'3 (1.1-4.8); LYMPHOCYTES % (AUTO) 19.5 % (21-51); MEAN CORPUSCULAR HEMOGLOBIN 20.2 PG (27.0-31.0); MEAN CORPUSCULAR HGB CONC 29.7 g/dL (33.0-36.5); MEAN PLATELET VOLUME 8.1 FL (7.4-10.4); MONOCYTES # (AUTO) 0.4 X10'3 (0-0.9); MONOCYTES % (AUTO) 6.7 % (2-12); NEUTROPHILS # (AUTO) 4.7 X10'3 (1.8-7.7); NEUTROPHILS % (AUTO) 71.7 % (42-75); PLATELET COUNT 296 X10'3 (140-440); RED BLOOD COUNT 4.49 X10'6 (4.20-5.60); RED CELL DISTRIBUTION WIDTH 19.4 % (11.5-14.5); WHITE BLOOD COUNT 6.5 X10'3 (4.5-11.0)
[2018-05-26 23:52] LABS: ALANINE AMINOTRANSFERASE 100 U/L (12-78); ALBUMIN 3.8 G/DL (3.4-5.0); ALKALINE PHOSPHATASE 196 IU/L (46-116); ANION GAP 6 (8-16); ASPARTATE AMINO TRANSFERASE 210 U/L (10-37); BILIRUBIN,TOTAL 0.4 MG/DL (0.1-1.0); BLOOD UREA NITROGEN 18 MG/DL (7-18); BUN/CREATININE RATIO 27.3 (6.6-38.0); CHLORIDE 104 MMOL/L (99-107); CREATININE 0.66 MG/DL (0.40-0.90); GLUCOSE 110 MG/DL (70-104); POTASSIUM 4.1 MMOL/L (3.5-5.1); SODIUM 139 MMOL/L (135-145); TOTAL CARBON DIOXIDE 28.8 MMOL/L (24-32); TOTAL PROTEIN 7.7 G/DL (6.4-8.2); eGFR 89 ML/MIN
[2018-05-27] LABS: MAGNESIUM 2.1 MG/DL (1.5-2.4)
[2018-05-27 00:20] LABS: ETHANOL < 0.010 GM/DL (0.0-0.010)
--- NOTE | 2018-05-27 00:38 | NUR ---
PT WALKED OUT OF ER
[2018-05-27 05:36] LABS: PLATELET ESTIMATE NORMAL
[2018-05-27 05:37] LABS: ANISOCYTOSIS 2+; HYPOCHROMASIA 2+; MICROCYTOSIS 2+
== END 2018-05-27 00:40 | disposition left against medical advice (07) ==
LOC: ER 22:16
DX: R07.9 Chest pain, unspecified (principal); I10 Essential (primary) hypertension; E11.9 Type 2 diabetes mellitus without complications; G89.29 Other chronic pain; Z86.73 Personal history of transient ischemic attack (TIA), and cerebral infarction without residual deficits; F17.200 Nicotine dependence, unspecified, uncomplicated; Z90.49 Acquired absence of other specified parts of digestive tract; Z90.89 Acquired absence of other organs; Z98.51 Tubal ligation status; Z79.899 Other long term (current) drug therapy
CPT/HCPCS: 36415; 71045; 80053; 80320; 83735; 83880; 84484; 85025; 93005; 99284

== ENCOUNTER 2018-06-19 22:07 | Inpatient (IN) | payer MEDICARE, BC | END 2018-06-25 16:35 | disposition home or self-care (01) | LOC: ICU 2S 06-20 02:16 → ER 22:07 → SUR 3N 06-21 16:32 | PROC: 0DTF0ZZ Resection of Right Large Intestine, Open Approach (ICD-10-PCS; principal; 2018-06-20 01:49) | DX: K56.2 Volvulus (principal); I31.3 Pericardial effusion (noninflammatory); R06.03 Acute respiratory distress; C50.919 Malignant neoplasm of unspecified site of unspecified female breast; I67.9 Cerebrovascular disease, unspecified ==

== ENCOUNTER 2018-12-21 16:14 | Inpatient (IN) | payer MEDICARE, BC ==
[~2018-12-21] VITALS: Ht 152.4 cm; Wt 49.5 kg
[~2018-12-21 16:14] MED LIST changes: +BACL10TA PO; -CHOL2000 PO; +COL100C PO; -CYAN-19 PO; -DICY10CA88 PO; +ESZO3TAB66 PO; +FER325T PO; -GABA-532 PO; +MAGN400O6 PO; +PANT-47 PO; +POLY17PO36 PO; +TRAZ-219 PO; -TRAZ-91 PO; -TRIA0.2585 PO; -TRINTELLIX PO; -VORT10TA PO
[2018-12-21] MEDS ORDERED: aspirin 81mg tab.chew PO ONE (16:25)
[2018-12-21 16:43] LABS: BASOPHILS # (AUTO) 0.1 X10'3 (0-0.2); BASOPHILS % (AUTO) 1.1 % (0-1); EOSINOPHILS # (AUTO) 0.1 X10'3 (0-0.9); HEMATOCRIT 44.4 % (35.0-45.0); HEMOGLOBIN 15.1 g/dl (12.0-16.0); LYMPHOCYTES # (AUTO) 1.5 X10'3 (1.1-4.8); LYMPHOCYTES % (AUTO) 26.1 % (21-51); MEAN CORPUSCULAR HEMOGLOBIN 32.5 PG (27.0-31.0); MEAN CORPUSCULAR VOLUME 95.5 FL (78-98); MEAN PLATELET VOLUME 8.7 FL (7.4-10.4); MONOCYTES # (AUTO) 0.4 X10'3 (0-0.9); MONOCYTES % (AUTO) 7.3 % (2-12); NEUTROPHILS # (AUTO) 3.6 X10'3 (1.8-7.7); NEUTROPHILS % (AUTO) 63.5 % (42-75); PLATELET COUNT 180 X10'3 (140-440); RED BLOOD COUNT 4.65 X10'6 (4.20-5.60); WHITE BLOOD COUNT 5.7 X10'3 (4.5-11.0)
--- NOTE | 2018-12-21 16:50 | NUR ---
PATIENT TOOK TWO FULL STRENGTH ASPIRINS ALREADY TODAY
[2018-12-21 17:00] LABS: ALANINE AMINOTRANSFERASE 69 U/L (12-78); ALBUMIN 3.4 G/DL (3.4-5.0); ALBUMIN/GLOBULIN RATIO 0.9 (1.1-1.5); ALKALINE PHOSPHATASE 168 IU/L (46-116); ANION GAP 6 (8-16); ASPARTATE AMINO TRANSFERASE 26 U/L (10-37); BILIRUBIN,TOTAL 0.2 MG/DL (0.1-1.0); BLOOD UREA NITROGEN 15 MG/DL (7-18); BUN/CREATININE RATIO 15.3 (6.6-38.0); CALCIUM 8.7 MG/DL (8.5-10.1); CHLORIDE 104 MMOL/L (99-107); CREATININE 0.98 MG/DL (0.40-0.90); GLUCOSE 92 MG/DL (70-104); POTASSIUM 4.1 MMOL/L (3.5-5.1); SODIUM 140 MMOL/L (135-145); TOTAL CARBON DIOXIDE 30.5 MMOL/L (24-32); TOTAL PROTEIN 7.1 G/DL (6.4-8.2); eGFR 56 ML/MIN
[2018-12-21 17:09] LABS: MAGNESIUM 2.2 MG/DL (1.5-2.4)
[2018-12-21] MEDS ORDERED: aspirin 81mg tab.chew PO SCH (17:20)
[2018-12-21 17:34] LABS: CLARITY,URINE CLOUDY (Clear); COLOR,URINE STRAW (Yellow); GLUCOSE, URINE NEGATIVE (Neg); KETONES,URINE NEGATIVE (Neg); LEUKOCYTE ESTERASE ,URINE MODERATE (Neg); NITRITES, URINE POSITIVE (Neg); OCCULT BLOOD,URINE NEGATIVE (Neg); PH,URINE 7.5 (4.8-8.0); PROTEIN,URINE NEGATIVE (Neg); UROBILINOGEN,URINE 0.2 E.U/dL (0.2-1.0)
[2018-12-21 17:39] LABS: UA COLLECTION TYPE NON-SPECIFIED
[2018-12-21 17:44] LABS: BACTERIA,URINE 4+ /HPF (Neg); MUCUS STRANDS NONE SEEN /LPF (Neg); RBC,URINE NONE SEEN /HPF (0-2); SQUAMOUS EPITHELIAL CELL,UR FEW /LPF (FEW); WBC CLUMPS,URINE FEW /HPF (NEGATIVE); WBC,URINE 20-30 /HPF (0-4)
[2018-12-21] MEDS ORDERED: nitrofuran/nitrofuran macrocrysal 100 MG capsule PO ONE (18:25)
[2018-12-21] MEDS ORDERED: LORazepam 1 MG tablet PO ONE (18:30)
[2018-12-21] MEDS ORDERED: nitroGLYCERIN 0.4mg SUBLingual tab SL PRN ×2 (18:35→20:05)
[2018-12-21] MEDS ORDERED: magnesium hydroxide 30ml (MOM) UD suspension PO PRN (19:50)
[2018-12-21] MEDS ORDERED: mag hydrox/Alum hydrox/simeth 30ml oral suspension PO PRN (19:50)
[2018-12-21] MEDS ORDERED: acetaminophen 325mg tablet PO PRN (19:50)
[2018-12-21] MEDS ORDERED: ondansetron/PF 4mg/2ml inj IV PRN (19:50)
[2018-12-21] MEDS ORDERED: FERR325T28 PO (19:55)
[2018-12-21] MEDS ORDERED: ESTR42.53 VG ×2 (19:59)
[2018-12-21] MEDS ORDERED: MODA200T48 PO (19:59)
[2018-12-21] MEDS ORDERED: oxyCODONE/APAP 10/325mg tablet PO PRN (20:05)
[2018-12-21] MEDS ORDERED: metoprolol tartrate 1mg/ml inj IV PRN (20:05)
[2018-12-21] MEDS ORDERED: regadenoson 0.4mg/5ml syringe IV ONE (20:05)
[2018-12-21] MEDS ORDERED: aminophylline 250mg/10ml inj. IV PRN (20:05)
[2018-12-21] MEDS ORDERED: zolpidem 5mg tablet PO PRN (20:15)
--- NOTE | 2018-12-21 20:19 | NUR ---
Patient in ED to be transferred to room PCU 3016B. I have received report from DARIANA Perry and had the opportunity to ask questions and assume patient care.
[2018-12-21 20:20] VITALS: BP 147/76
[2018-12-21] MEDS: heparin, porcine 5000 units/ml vial SQ SCH (20:59)
[2018-12-21] MEDS ORDERED: traZODone 150mg tablet PO SCH (21:00)
[2018-12-21] MEDS: baclofen 10mg tablet PO SCH (21:00)
[2018-12-21] MEDS ORDERED: cloNIDine 0.1 mg tablet PO SCH (21:00)
[2018-12-21] MEDS ORDERED: traZODone 50mg tablet PO SCH (21:00)
--- NOTE | 2018-12-21 21:30 | NUR ---
Patient refused to get DARTed by nurse stating, " I'm too tired because she has been up since 0300 in the morning trying to get her power turned back on." Will delegate task to day shift nurse.
[2018-12-21 23:00] VITALS: BP 119/64
[2018-12-22] VITALS (10 sets, daily range): BP systolic 107–128; BP diastolic 56–72
--- NOTE | 2018-12-22 06:00 | NUR ---
Patient in room PCU 3016. I have received report from Jennifer WESTBROOK and had the opportunity to ask questions and assume patient care.
--- NOTE | 2018-12-22 06:15 | NUR ---
Problems reprioritized. Patient report given, questions answered & plan of care reviewed with DARIANA Gerard. DNR band signed with day shift nurse and placed on patient.
[2018-12-22 06:48] LABS: BASOPHILS # (AUTO) 0.1 X10'3 (0-0.2); BASOPHILS % (AUTO) 1.5 % (0-1); EOSINOPHILS # (AUTO) 0.2 X10'3 (0-0.9); EOSINOPHILS % (AUTO) 4.4 % (0-6); HEMATOCRIT 43.2 % (35.0-45.0); HEMOGLOBIN 14.7 g/dl (12.0-16.0); LYMPHOCYTES # (AUTO) 1.8 X10'3 (1.1-4.8); LYMPHOCYTES % (AUTO) 37.8 % (21-51); MEAN CORPUSCULAR HEMOGLOBIN 32.9 PG (27.0-31.0); MEAN CORPUSCULAR VOLUME 96.6 FL (78-98); MONOCYTES # (AUTO) 0.4 X10'3 (0-0.9); MONOCYTES % (AUTO) 7.6 % (2-12); NEUTROPHILS # (AUTO) 2.3 X10'3 (1.8-7.7); NEUTROPHILS % (AUTO) 48.7 % (42-75); PLATELET COUNT 163 X10'3 (140-440); RED BLOOD COUNT 4.47 X10'6 (4.20-5.60); RED CELL DISTRIBUTION WIDTH 14.3 % (11.5-14.5); WHITE BLOOD COUNT 4.8 X10'3 (4.5-11.0)
[2018-12-22 06:52] LABS: ALANINE AMINOTRANSFERASE 60 U/L (12-78); ALBUMIN 3.4 G/DL (3.4-5.0); ALKALINE PHOSPHATASE 151 IU/L (46-116); ANION GAP 7 (8-16); ASPARTATE AMINO TRANSFERASE 26 U/L (10-37); BILIRUBIN,TOTAL 0.3 MG/DL (0.1-1.0); BLOOD UREA NITROGEN 14 MG/DL (7-18); BUN/CREATININE RATIO 20.9 (6.6-38.0); CALCIUM 8.9 MG/DL (8.5-10.1); CHLORIDE 103 MMOL/L (99-107); CREATININE 0.67 MG/DL (0.40-0.90); GLUCOSE 84 MG/DL (70-104); POTASSIUM 4.2 MMOL/L (3.5-5.1); SODIUM 140 MMOL/L (135-145); TOTAL CARBON DIOXIDE 30.4 MMOL/L (24-32); TOTAL PROTEIN 6.8 G/DL (6.4-8.2); eGFR 87 ML/MIN
--- NOTE | 2018-12-22 07:26 | NUR ---
Page to Dr Sommer re: Room 9115M Lisa Messina BG 84, NPO for Lexiscan, diet controlled at home, do you want to start hyperglycemia protocol? Skylar [phone]
[2018-12-22] MEDS ORDERED: ferrous sulfate 325mg tablet PO SCH (08:00)
[2018-12-22] MEDS ORDERED: modafinil 100mg tablet PO SCH (08:00)
[2018-12-22] MEDS: heparin, porcine 5000 units/ml vial SQ SCH (08:00)
[2018-12-22] MEDS ORDERED: docusate sod 100mg capsule PO SCH (08:00)
[2018-12-22] MEDS: baclofen 10mg tablet PO SCH ×2 (08:28→13:00)
[2018-12-22] MEDS ORDERED: glucagon, human recombinant 1mg kit SUBCUT PRN (09:20)
[2018-12-22] MEDS ORDERED: dextrose 50%-water 50ml dispensing syringe IV PRN ×2 (09:20)
[2018-12-22] MEDS ORDERED: insulin Lispro (HumaLOG) vial - multi-dose SQ SCH (09:20)
[2018-12-22] MEDS ORDERED: dextrose ORAL solution 15 GM/59 ML bottle PO PRN ×2 (09:20)
[2018-12-22] MEDS ORDERED: MESSAGE TO PHARMACY PO ONE (09:20)
[2018-12-22 09:47] LABS: CHOL/HDL RATIO 2.2 (0.00-4.99); CHOLESTEROL 180 MG/DL (0-200); HDL CHOLESTEROL 82 MG/DL (35-60); LDL CHOLESTEROL 80 MG/DL (50-100); TRIGLYCERIDES 101 MG/DL (20-135)
[2018-12-22 10:17] LABS: HEMOGLOBIN A1C 5.9 % (4.5-6.2)
[2018-12-22 11:03] LABS: H PYLORI ANTIBODY NEGATIVE (Neg)
--- NOTE | 2018-12-22 11:04 | NUR ---
Page to Dr Sommer re: Room 5437B JOSE Mcnamara results back, can she eat? Skylar [phone]
[2018-12-22] MEDS ORDERED: FLU VACC QS2019-20 36MOS UP/PF 60 MCG/0.5 ML SYRINGE IMVAC ONE (12:45)
[2018-12-22] MEDS ORDERED: ASPI-611 PO (13:01)
[2018-12-22] MEDS ORDERED: LEVO250T58 PO (13:01)
[2018-12-22] MEDS ORDERED: METH1TAB32 PO (13:01)
--- NOTE | 2018-12-22 14:05 | NUR ---
Discussed discharge instructions with patient at this time. Tele box removed, IV removed, catheter intact. Pt belongings in suitcase, pt ambulated to lobby with RN stand-by assist. Pt home in private vehicle driven by one of her friends. Pt's prescriptions called to [facility] on [address] per pt request. Instructed patient to call unit in case of any questions regarding discharge or prescriptions, phone number written on patient's discharge packet.
[2018-12-22] MEDS ORDERED: insulin glargine (Lantus) pen - multi-dose SQ SCH (21:00)
[2018-12-24] MEDS ORDERED: ESTRADIOL VG SCH (08:00)
== END 2018-12-22 14:12 | disposition home or self-care (01) | DRG 313 ==
LOC: ER 16:15 → ED HOLD 20:12 → PCU 3S 20:20
PROVIDERS: ADMIT Internal Medicine; ATTEND Family Medicine
PROC: 3E02340 Introduction of Influenza Vaccine into Muscle, Percutaneous Approach (ICD-10-PCS; principal; 2018-12-22)
PROC: 4A02XM4 Measurement of Cardiac Total Activity, External Approach (ICD-10-PCS; 2018-12-22)
PROC: 3E033HZ Introduction of Radioactive Substance into Peripheral Vein, Percutaneous Approach (ICD-10-PCS; 2018-12-22)
DX: R07.89 Other chest pain (principal); N17.9 Acute kidney failure, unspecified; N30.00 Acute cystitis without hematuria; E11.9 Type 2 diabetes mellitus without complications; F41.1 Generalized anxiety disorder; M54.2 Cervicalgia; I20.9 Angina pectoris, unspecified; F17.210 Nicotine dependence, cigarettes, uncomplicated; F32.9 Major depressive disorder, single episode, unspecified; F43.20 Adjustment disorder, unspecified; G89.4 Chronic pain syndrome; I10 Essential (primary) hypertension; Z85.3 Personal history of malignant neoplasm of breast; Z86.73 Personal history of transient ischemic attack (TIA), and cerebral infarction without residual deficits; Z90.49 Acquired absence of other specified parts of digestive tract; Z98.84 Bariatric surgery status; Z23 Encounter for immunization; Z98.51 Tubal ligation status
CPT/HCPCS: 36415; 71045; 78452; 80053; 80061; 81001; 82948; 83036; 83735; 83880; 84443; 84484; 85025; 86677; 87077; 87081; 87088; 87186; 93005; 93017; 99285; A9500; G0378; J0280; J1644; J1815; J2785; Q2037

== ENCOUNTER 2019-01-09 17:31 | Emergency (ER) | payer MEDICARE, BC ==
[~2019-01-09] VITALS: Ht 152.4 cm; Wt 49.1 kg
[~2019-01-09 17:31] MED LIST changes: +ASPI-611 PO; +ESTR42.53 VG; -FER325T PO; +FERR325T28 PO; +LEVO250T58 PO; -MAGN400O6 PO; +METH1TAB32 PO; +MODA200T48 PO; -PANT-47 PO; -POLY17PO36 PO
[2019-01-09 18:06] LABS: CLARITY,URINE CLEAR (Clear); COLOR,URINE YELLOW (Yellow); GLUCOSE, URINE NEGATIVE (Neg); KETONES,URINE NEGATIVE (Neg); LEUKOCYTE ESTERASE ,URINE NEGATIVE (Neg); NITRITES, URINE NEGATIVE (Neg); OCCULT BLOOD,URINE NEGATIVE (Neg); PROTEIN,URINE NEGATIVE (Neg); UROBILINOGEN,URINE 0.2 E.U/dL (0.2-1.0)
[2019-01-09 18:08] LABS: UA COLLECTION TYPE CLN CATCH MIDSTREAM
[2019-01-09 18:12] LABS: ALANINE AMINOTRANSFERASE 105 U/L (12-78); ALBUMIN 3.5 G/DL (3.4-5.0); ALBUMIN/GLOBULIN RATIO 0.9 (1.1-1.5); ALKALINE PHOSPHATASE 186 IU/L (46-116); ANION GAP 5 (8-16); ASPARTATE AMINO TRANSFERASE 48 U/L (10-37); BASOPHILS % (AUTO) 0.5 % (0-1); BILIRUBIN,TOTAL 0.3 MG/DL (0.1-1.0); BLOOD UREA NITROGEN 14 MG/DL (7-18); BUN/CREATININE RATIO 21.5 (6.6-38.0); CALCIUM 9.4 MG/DL (8.5-10.1); CHLORIDE 104 MMOL/L (99-107); CREATININE 0.65 MG/DL (0.40-0.90); EOSINOPHILS # (AUTO) 0.1 X10'3 (0-0.9); EOSINOPHILS % (AUTO) 1.3 % (0-6); GLUCOSE 107 MG/DL (70-104); HEMATOCRIT 48.1 % (35.0-45.0); HEMOGLOBIN 16.2 g/dl (12.0-16.0); LIPASE 93 U/L (73-393); LYMPHOCYTES # (AUTO) 1.5 X10'3 (1.1-4.8); LYMPHOCYTES % (AUTO) 19.1 % (21-51); MEAN CORPUSCULAR HEMOGLOBIN 32.9 PG (27.0-31.0); MEAN CORPUSCULAR HGB CONC 33.7 g/dL (33.0-36.5); MEAN CORPUSCULAR VOLUME 97.7 FL (78-98); MEAN PLATELET VOLUME 8.6 FL (7.4-10.4); MONOCYTES # (AUTO) 0.5 X10'3 (0-0.9); MONOCYTES % (AUTO) 6.8 % (2-12); NEUTROPHILS # (AUTO) 5.7 X10'3 (1.8-7.7); NEUTROPHILS % (AUTO) 72.3 % (42-75); PLATELET COUNT 192 X10'3 (140-440); POTASSIUM 4.1 MMOL/L (3.5-5.1); RED BLOOD COUNT 4.93 X10'6 (4.20-5.60); RED CELL DISTRIBUTION WIDTH 13.9 % (11.5-14.5); SODIUM 140 MMOL/L (135-145); TOTAL PROTEIN 7.4 G/DL (6.4-8.2); WHITE BLOOD COUNT 7.9 X10'3 (4.5-11.0); eGFR 90 ML/MIN
[2019-01-09] MEDS ORDERED: LORazepam 1 MG tablet PO ONE (18:35)
[2019-01-09 19:00] VITALS: BP 127/77
== END 2019-01-09 19:07 | disposition home or self-care (01) ==
LOC: ER 17:31
DX: R10.33 Periumbilical pain (principal); R74.0 Nonspecific elevation of levels of transaminase and lactic acid dehydrogenase [LDH]; I10 Essential (primary) hypertension; E11.9 Type 2 diabetes mellitus without complications; G89.29 Other chronic pain; Z90.49 Acquired absence of other specified parts of digestive tract; Z98.84 Bariatric surgery status; Z98.51 Tubal ligation status; Z98.890 Other specified postprocedural states; Z90.89 Acquired absence of other organs; Z86.73 Personal history of transient ischemic attack (TIA), and cerebral infarction without residual deficits; Z85.3 Personal history of malignant neoplasm of breast; Z79.82 Long term (current) use of aspirin; Z79.899 Other long term (current) drug therapy
CPT/HCPCS: 36415; 80053; 81003; 83690; 85025; 99283

== ENCOUNTER 2019-07-01 14:52 | Emergency (ER) | payer MEDICARE, BC ==
[~2019-07-01] VITALS: Ht 152.4 cm; Wt 46.3 kg
[~2019-07-01 14:52] MED LIST changes: -ASPI-611 PO; -LEVO250T58 PO; -TRAZ-219 PO; +TRAZ-256 PO
--- NOTE | 2019-07-01 15:05 | NUR ---
EKG shown to Dr Gomez, no STEMI per MD. Dr Arnett at patient's bedside, made aware.
[2019-07-01] MEDS ORDERED: nitroGLYCERIN 0.4mg/hour patch TD ONE (15:20)
[2019-07-01] MEDS ORDERED: aspirin 81mg tab.chew PO ONE (15:20)
[2019-07-01 15:28] LABS: BASOPHILS % (AUTO) 0.8 % (0-1); EOSINOPHILS # (AUTO) 0.3 X10'3 (0-0.9); EOSINOPHILS % (AUTO) 5.2 % (0-6); HEMATOCRIT 45.9 % (35.0-45.0); HEMOGLOBIN 15.4 g/dl (12.0-16.0); LYMPHOCYTES # (AUTO) 1.7 X10'3 (1.1-4.8); LYMPHOCYTES % (AUTO) 30.8 % (21-51); MEAN CORPUSCULAR HEMOGLOBIN 32.6 PG (27.0-31.0); MEAN CORPUSCULAR HGB CONC 33.5 g/dL (33.0-36.5); MEAN CORPUSCULAR VOLUME 97.4 FL (78-98); MEAN PLATELET VOLUME 8.1 FL (7.4-10.4); MONOCYTES # (AUTO) 0.4 X10'3 (0-0.9); MONOCYTES % (AUTO) 6.9 % (2-12); NEUTROPHILS % (AUTO) 56.3 % (42-75); PLATELET COUNT 261 X10'3 (140-440); RED BLOOD COUNT 4.71 X10'6 (4.20-5.60); WHITE BLOOD COUNT 5.4 X10'3 (4.5-11.0)
[2019-07-01 15:34] LABS: D-DIMER 0.34 MG/L FEU (0-0.50)
[2019-07-01 15:53] LABS: ALANINE AMINOTRANSFERASE 56 U/L (12-78); ALBUMIN 3.3 G/DL (3.4-5.0); ALKALINE PHOSPHATASE 170 IU/L (46-116); ANION GAP 9 (8-16); ASPARTATE AMINO TRANSFERASE 28 U/L (10-37); BILIRUBIN,TOTAL 0.3 MG/DL (0.1-1.0); BLOOD UREA NITROGEN 14 MG/DL (7-18); BUN/CREATININE RATIO 18.9 (6.6-38.0); CALCIUM 8.5 MG/DL (8.5-10.1); CHLORIDE 105 MMOL/L (99-107); CREATININE 0.74 MG/DL (0.40-0.90); GLUCOSE 119 MG/DL (70-104); POTASSIUM 3.8 MMOL/L (3.5-5.1); SODIUM 141 MMOL/L (135-145); TOTAL CARBON DIOXIDE 26.7 MMOL/L (24-32); TOTAL PROTEIN 6.5 G/DL (6.4-8.2); eGFR 77 ML/MIN
[2019-07-01 16:00] LABS: LIPASE 92 U/L (73-393); MAGNESIUM 2.2 MG/DL (1.5-2.4)
[2019-07-01] MEDS ORDERED: LORazepam 2 mg/ml vial IV ONE ×2 (16:10→17:00)
[2019-07-01] MEDS ORDERED: morphine 4 MG/ML inj SYRINge IV ONE (16:10)
[2019-07-01 16:41] LABS: CLARITY,URINE SLIGHTLY CLOUDY (Clear); COLOR,URINE STRAW (Yellow); GLUCOSE, URINE NEGATIVE (Neg); KETONES,URINE NEGATIVE (Neg); LEUKOCYTE ESTERASE ,URINE TRACE (Neg); NITRITES, URINE NEGATIVE (Neg); OCCULT BLOOD,URINE NEGATIVE (Neg); PH,URINE 6.5 (4.8-8.0); PROTEIN,URINE NEGATIVE (Neg); UROBILINOGEN,URINE 0.2 E.U/dL (0.2-1.0)
[2019-07-01 16:42] LABS: UA COLLECTION TYPE CLN CATCH MIDSTREAM
[2019-07-01 16:51] LABS: MUCUS STRANDS NONE SEEN /LPF (Neg); SQUAMOUS EPITHELIAL CELL,UR MANY /LPF (FEW)
[2019-07-01 16:52] LABS: BACTERIA,URINE 1+ /HPF (Neg); RBC,URINE 0-2 /HPF (0-2); WBC,URINE 0-4 /HPF (0-4)
--- NOTE | 2019-07-01 17:09 | NUR ---
Patient resting comfortably in bed. She reports improvement of her previous neck pain after morphine was given. Patient requests additional small dose of ativan but does report some improvement after the inital dose. Patient with call walker in hand and understands how to use it appropriately. Patient updated on POC.
--- NOTE | 2019-07-01 17:10 | NUR ---
Note roas in EDM - 07/01/19 at 1715 by PAULA spoke with mom regarding the allergy to vancomycin. has severe itching and is premedicated with benadryl prior to vanco administration and is run over 2 hours.
--- NOTE | 2019-07-01 17:15 | NUR ---
Note rosa in EDM - 07/01/19 at 1718 by PAULA SPOKE WITH PTS MOM REGARDING THE ALLERGY TO VANCOMYCIN. HAS SEVERE ITCHING AND IS PREMEDICATED WITH BENADRYL PRIOR TO VANCO ADMINISTRATION AND IS RAN OVER 2 HRS.
--- NOTE | 2019-07-01 18:14 | NUR ---
SANDWICH GIVEN AND ICE WATER TO PATIENT. TELEPHONE CONNECTED AND IS IN REACH FOR PATIENT USE. DENIES NEEDS AT THIS TIME.
[2019-07-01] MEDS ORDERED: PANT-47 PO (18:52)
[2019-07-01 19:17] VITALS: BP 118/47
== END 2019-07-01 19:40 | disposition home or self-care (01) ==
LOC: ER 14:53
DX: R07.89 Other chest pain (principal); R05 Cough; R19.7 Diarrhea, unspecified; R10.13 Epigastric pain; I10 Essential (primary) hypertension; E11.9 Type 2 diabetes mellitus without complications; G89.29 Other chronic pain; F32.9 Major depressive disorder, single episode, unspecified; F17.200 Nicotine dependence, unspecified, uncomplicated; Z90.49 Acquired absence of other specified parts of digestive tract; Z98.0 Intestinal bypass and anastomosis status; Z98.51 Tubal ligation status; Z98.890 Other specified postprocedural states; Z79.899 Other long term (current) drug therapy
CPT/HCPCS: 36415; 71045; 80053; 81001; 83605; 83690; 83735; 83880; 84145; 84484; 85025; 85379; 85610; 87040; 93005; 96374; 96375; 96376; 99285; J2060; J2270

== ENCOUNTER 2019-07-04 12:47 | Emergency (ER) | payer MEDICARE, BC ==
[~2019-07-04] VITALS: Ht 152.4 cm; Wt 46.4 kg
[~2019-07-04 12:47] MED LIST changes: +PANT-47 PO
[2019-07-04 12:49] VITALS: BP 144/72
== END 2019-07-04 13:17 | disposition home or self-care (01) ==
LOC: ER 12:47
DX: R50.9 Fever, unspecified (principal); Z20.828 Contact with and (suspected) exposure to other viral communicable diseases; R05 Cough; I10 Essential (primary) hypertension; E11.9 Type 2 diabetes mellitus without complications; G89.29 Other chronic pain; F32.9 Major depressive disorder, single episode, unspecified; Z86.73 Personal history of transient ischemic attack (TIA), and cerebral infarction without residual deficits; Z85.3 Personal history of malignant neoplasm of breast; Z90.49 Acquired absence of other specified parts of digestive tract; Z98.0 Intestinal bypass and anastomosis status; Z98.51 Tubal ligation status; Z98.890 Other specified postprocedural states; Z79.899 Other long term (current) drug therapy
CPT/HCPCS: 87635; 99283

== ENCOUNTER 2019-12-27 09:07 | Emergency (ER) | payer MEDICARE, BC ==
[~2019-12-27] VITALS: Ht 167.6 cm; Wt 46.4 kg
[2019-12-27] MEDS ORDERED: oxyCODONE IR 5mg (immed. release) tablet PO ONE (09:25)
[2019-12-27] MEDS ORDERED: normal saline 1000ML IV soln IVB ONE (09:25)
[2019-12-27 09:35] LABS: BASOPHILS # (AUTO) 0.1 X10'3 (0-0.2); EOSINOPHILS # (AUTO) 0.1 X10'3 (0-0.9); EOSINOPHILS % (AUTO) 2.2 % (0-6); HEMATOCRIT 45.4 % (35.0-45.0); HEMOGLOBIN 15.6 g/dl (12.0-16.0); LYMPHOCYTES # (AUTO) 1.2 X10'3 (1.1-4.8); LYMPHOCYTES % (AUTO) 21.5 % (21-51); MEAN CORPUSCULAR HEMOGLOBIN 33.1 PG (27.0-31.0); MEAN CORPUSCULAR HGB CONC 34.4 g/dL (33.0-36.5); MEAN CORPUSCULAR VOLUME 96.4 FL (78-98); MEAN PLATELET VOLUME 7.9 FL (7.4-10.4); MONOCYTES # (AUTO) 0.4 X10'3 (0-0.9); MONOCYTES % (AUTO) 6.6 % (2-12); NEUTROPHILS # (AUTO) 3.9 X10'3 (1.8-7.7); NEUTROPHILS % (AUTO) 68.7 % (42-75); PLATELET COUNT 207 X10'3 (140-440); RED BLOOD COUNT 4.71 X10'6 (4.20-5.60); RED CELL DISTRIBUTION WIDTH 13.3 % (11.5-14.5); WHITE BLOOD COUNT 5.6 X10'3 (4.5-11.0)
[2019-12-27 09:50] LABS: ALANINE AMINOTRANSFERASE 28 U/L (12-78); ALBUMIN 3.5 G/DL (3.4-5.0); ALKALINE PHOSPHATASE 141 IU/L (46-116); ANION GAP 8 (8-16); ASPARTATE AMINO TRANSFERASE 23 U/L (10-37); BILIRUBIN,TOTAL 0.4 MG/DL (0.1-1.0); BLOOD UREA NITROGEN 10 MG/DL (7-18); BUN/CREATININE RATIO 18.2 (6.6-38.0); CALCIUM 8.8 MG/DL (8.5-10.1); CHLORIDE 105 MMOL/L (99-107); CREATININE 0.55 MG/DL (0.40-0.90); GLUCOSE 98 MG/DL (70-104); POTASSIUM 3.8 MMOL/L (3.5-5.1); SODIUM 141 MMOL/L (135-145); TOTAL CARBON DIOXIDE 28.1 MMOL/L (24-32); TOTAL PROTEIN 6.9 G/DL (6.4-8.2); eGFR > 90 ML/MIN
--- NOTE | 2019-12-27 10:23 | NUR ---
Pt ambulated to restroom and back to bed without any assistance.
--- NOTE | 2019-12-27 10:35 | NUR ---
Pt had me call her friend, Esther Kinseygillianalberto at [phone], for a ride home. No answer, left a message for her to call us as soon as she got the message.
[2019-12-27 10:51] VITALS: BP 155/72
== END 2019-12-27 10:55 | disposition home or self-care (01) ==
LOC: ER 09:07
DX: F11.23 Opioid dependence with withdrawal (principal); R19.7 Diarrhea, unspecified; I10 Essential (primary) hypertension; E11.9 Type 2 diabetes mellitus without complications; G89.29 Other chronic pain; F32.9 Major depressive disorder, single episode, unspecified; Z86.73 Personal history of transient ischemic attack (TIA), and cerebral infarction without residual deficits; Z90.49 Acquired absence of other specified parts of digestive tract; Z98.61 Coronary angioplasty status; Z98.51 Tubal ligation status; Z98.890 Other specified postprocedural states; Z79.899 Other long term (current) drug therapy
CPT/HCPCS: 36415; 80053; 85025; 96360; 99284; J7030

== ENCOUNTER 2020-03-19 18:10 | Emergency (ER) | payer MEDICARE, BC ==
[~2020-03-19] VITALS: Ht 160 cm; Wt 50.0 kg
--- NOTE | 2020-03-19 18:35 | NUR ---
C SPINE COLLAR IN PLACE.
--- NOTE | 2020-03-19 18:40 | NUR ---
PATIENT ADMITS TO WANTING TO SO TOOK ALL THE PILLS
--- NOTE | 2020-03-19 18:41 | NUR ---
PATIENT HAS CHRONIC PAIN
--- NOTE | 2020-03-19 18:51 | NUR ---
POISON CONTROLLED NOTIFIED SPOKE WITH RAYMUNDO [facility] OVERDOSE OF TRAZADONE 100 MG PILLS PATIENT ADMITS TO TAKING 14 PILLS. RAYMUNDO REPORTS POSSIBILITY SEIZURES EXPECTED WITH DOSAGES OVER 2000 MG SEIZURE PRECAUTIONS INITIATED TRAZADONE PEAK IN 4-6 HOURS FOR MEDICAL CLEARANCE GIVE FLUID FOR HYPOTENSION ELECTROLYTES NEEDED PER EKG CHANGES MONITOR QTc FOR PROLONGATION SERUM LABS SUGGESTED ARE CMP, ASA ACETAMINOPHEN EXPECT DIZZINESS, DROWSINESS
[2020-03-19 19:40] LABS: BASOPHILS % (AUTO) 0.1 % (0-1); EOSINOPHILS % (AUTO) 0 % (0-6); HEMATOCRIT 46.7 % (35.0-45.0); HEMOGLOBIN 15.7 g/dl (12.0-16.0); LYMPHOCYTES # (AUTO) 0.4 X10'3 (1.1-4.8); LYMPHOCYTES % (AUTO) 5.5 % (21-51); MEAN CORPUSCULAR HEMOGLOBIN 33.3 PG (27.0-31.0); MEAN CORPUSCULAR HGB CONC 33.6 g/dL (33.0-36.5); MEAN CORPUSCULAR VOLUME 99.1 FL (78-98); MEAN PLATELET VOLUME 9.1 FL (7.4-10.4); MONOCYTES # (AUTO) 0.6 X10'3 (0-0.9); MONOCYTES % (AUTO) 7.4 % (2-12); NEUTROPHILS # (AUTO) 6.8 X10'3 (1.8-7.7); PLATELET COUNT 188 X10'3 (140-440); RED BLOOD COUNT 4.71 X10'6 (4.20-5.60); RED CELL DISTRIBUTION WIDTH 13.8 % (11.5-14.5); WHITE BLOOD COUNT 7.8 X10'3 (4.5-11.0)
[2020-03-19 19:43] LABS: ALANINE AMINOTRANSFERASE 128 U/L (12-78); ALBUMIN 3.2 G/DL (3.4-5.0); ALBUMIN/GLOBULIN RATIO 0.9 (1.1-1.5); ALKALINE PHOSPHATASE 137 IU/L (46-116); ANION GAP 8 (8-16); ASPARTATE AMINO TRANSFERASE 102 U/L (10-37); BILIRUBIN,TOTAL 0.4 MG/DL (0.1-1.0); BLOOD UREA NITROGEN 32 MG/DL (7-18); BUN/CREATININE RATIO 36.4 (6.6-38.0); CALCIUM 8.8 MG/DL (8.5-10.1); CHLORIDE 105 MMOL/L (99-107); CREATININE 0.88 MG/DL (0.40-0.90); GLUCOSE 154 MG/DL (70-104); POTASSIUM 4.4 MMOL/L (3.5-5.1); SODIUM 142 MMOL/L (135-145); TOTAL CARBON DIOXIDE 28.6 MMOL/L (24-32); TOTAL PROTEIN 6.7 G/DL (6.4-8.2); eGFR 63 ML/MIN
[2020-03-19 19:51] LABS: ETHANOL < 0.010 GM/DL (0.0-0.010)
[2020-03-19 19:53] LABS: ACETAMINOPHEN < 2.0 UG/ML (10-30)
--- NOTE | 2020-03-19 20:26 | NUR ---
Quyen LEE REMOVED BY DR. RAY
[2020-03-19 21:37] LABS: CLARITY,URINE CLEAR (Clear); COLOR,URINE YELLOW (Yellow); GLUCOSE, URINE NEGATIVE (Neg); KETONES,URINE NEGATIVE (Neg); LEUKOCYTE ESTERASE ,URINE NEGATIVE (Neg); NITRITES, URINE NEGATIVE (Neg); OCCULT BLOOD,URINE NEGATIVE (Neg); PROTEIN,URINE NEGATIVE (Neg); UROBILINOGEN,URINE 0.2 E.U/dL (0.2-1.0)
[2020-03-19 21:41] LABS: UA COLLECTION TYPE STRAIGHT CATH
[2020-03-19 21:50] LABS: URINE AMPHETAMINE SCREEN NEGATIVE (Neg); URINE BARBITUATE SCREEN NEGATIVE (Neg); URINE BENZODIAZEPINES SCREEN NEGATIVE (Neg); URINE CANNABINOID SCREEN NEGATIVE (Neg); URINE COCAINE SCREEN NEGATIVE (Neg); URINE METHADONE SCREEN NEGATIVE (Neg); URINE OPIATE SCREEN POSITIVE (Neg); URINE PHENCYCLIDINE SCREEN NEGATIVE (Neg)
--- NOTE | 2020-03-19 22:31 | NUR ---
POISON CONTROL WOULD LIKE ANOTHER SALICYLATE LEVEL DRAWN CYNTHIAEB 2-4 HOURS FROM LAST TO MAKE SURE ITS TRENDING DOWN
--- NOTE | 2020-03-20 06:30 | NUR ---
received report on patient from DARIANA Matthews. The patient was laying on her right side and sleeping. The patient's respirations appeared normal and she was not in any distress at the time.
--- NOTE | 2020-03-20 07:33 | NUR ---
rounded on the patient she was awake laying on her right side. She was obsessing about the respiratory therapist's computer saying "the nurse left a towel on the counter and it is bleeding, can you see it?". She then let me know "my fingers are dirty, can I have a paper towel?". I gave her a paper towel and re-oriented her to the room and where she was. Her respirations appear normal and she is not in any distress at this time.
--- NOTE | 2020-03-20 08:32 | NUR ---
patient is asleep on her right side her respirations appear normal and she is not in any distress at this time.
--- NOTE | 2020-03-20 08:42 | NUR ---
poison control called for an update on the patient, I gave him an update
[2020-03-20] MEDS: baclofen 10mg tablet PO SCH ×3 (09:32→20:58)
[2020-03-20] MEDS: ferrous sulfate 325mg tablet PO SCH ×2 (09:32→20:58)
[2020-03-20] MEDS: methenamine hippurate 1gm tablet PO SCH ×2 (09:32→21:01)
[2020-03-20] MEDS: docusate sod 100mg capsule PO SCH ×2 (09:33→20:00)
[2020-03-20] MEDS: modafinil 100mg tablet PO SCH (09:57)
--- NOTE | 2020-03-20 10:24 | NUR ---
breaking primary RN, pt is on the phone, calm, no s/s of distress observed
--- NOTE | 2020-03-20 11:00 | NUR ---
Pt escorted from ED10 to ED20. Pt able to abulated, but requires stand-by assist d/t unsteady gait.
--- NOTE | 2020-03-20 11:04 | NUR ---
Patient given juice and a warm wipe for her hands. No distress observed. Continue to monitor.
[2020-03-20] MEDS ORDERED: DIVA125T31 PO (11:46)
--- NOTE | 2020-03-20 11:47 | NUR ---
Discussed Rachel's request for Xanax for anxiety w/ mik hanna; new order for anxiety med w/ be forthcoming, but likely not to include Xanax. DARIANA Ramos updated.
[2020-03-20] MEDS ORDERED: diphenhydrAMINE 25mg capsule PO ONE (12:40)
--- NOTE | 2020-03-20 13:30 | NUR ---
Bakari HOANG, evaluating patient. Continue to monitor.
--- NOTE | 2020-03-20 14:44 | NUR ---
pt was inc of stool, she is assisted by staff to clean up, she is calm with staff
--- NOTE | 2020-03-20 15:59 | NUR ---
Son Emigdio Messina [phone], . Son has medical power of insurance defense attorney and lives in [place]. Son has been trying to convince his elderly mother to move to [place] she said yes and is in the process of selling her house and she is buying a condo in [place]. Son is concerned because of all the medication she is on, Oxycodone, Baclofen, etc. Son says patient has bottles of medication all over her house. Son is afraid that patient will kill herself or somebody else.
--- NOTE | 2020-03-20 17:25 | NUR ---
Patient spoke with her son. Patient told son that she is incapacitated. Son is driving from [place] to assist mother with selling of her house. Patient agreed to admission to get help.
[2020-03-20] MEDS: cloNIDine 0.1 mg tablet PO SCH (20:58)
[2020-03-20] MEDS: traZODone 50mg tablet PO SCH (20:58)
[2020-03-20] MEDS: zolpidem 5mg tablet PO SCH (20:58)
--- NOTE | 2020-03-21 01:50 | NUR ---
Pt called nurse over to bedside stating that she is unalbe to sleep. Pt also stated that she is hallucinating because she sees "puffy dolls" on ceiling.
[2020-03-21] MEDS: ferrous sulfate 325mg tablet PO SCH ×2 (07:30→20:30)
[2020-03-21] MEDS: docusate sod 100mg capsule PO SCH ×2 (07:30→20:00)
[2020-03-21] MEDS: methenamine hippurate 1gm tablet PO SCH ×2 (07:30→20:29)
[2020-03-21] MEDS: baclofen 10mg tablet PO SCH ×3 (07:30→20:30)
[2020-03-21] MEDS: oxyCODONE/APAP 10/325mg tablet PO PRN ×2 (07:34→14:27)
[2020-03-21] MEDS: modafinil 100mg tablet PO SCH (07:41)
--- NOTE | 2020-03-21 08:28 | NUR ---
pt is eating breakfast, no needs at this time.
--- NOTE | 2020-03-21 10:00 | NUR ---
Pt is resting in bed comfortably, no s/s of distress noted.
--- NOTE | 2020-03-21 11:54 | NUR ---
Pt expressed desire to go to [facility] for further mental health tx. pt is friendly and cooperative for all care. pt is now resting quietly.
[2020-03-21] MEDS ORDERED: LORazepam 1 MG tablet PO ONE (14:15)
--- NOTE | 2020-03-21 20:09 | NUR ---
Pt approached nursing station stating, "I don't want to live without my ." Reassurance was given by nurse to patient. Pt then independently ambulated to bathroom.
[2020-03-21] MEDS: zolpidem 5mg tablet PO SCH (20:30)
[2020-03-21] MEDS: cloNIDine 0.1 mg tablet PO SCH (20:30)
[2020-03-21] MEDS: traZODone 50mg tablet PO SCH (20:30)
[2020-03-22] MEDS: oxyCODONE/APAP 10/325mg tablet PO PRN (06:44)
[2020-03-22] MEDS: modafinil 100mg tablet PO SCH (08:00)
[2020-03-22] MEDS: docusate sod 100mg capsule PO SCH ×2 (08:00→19:19)
[2020-03-22] MEDS: methenamine hippurate 1gm tablet PO SCH ×2 (08:12→19:21)
[2020-03-22] MEDS: baclofen 10mg tablet PO SCH ×3 (08:12→19:21)
[2020-03-22] MEDS: ferrous sulfate 325mg tablet PO SCH ×2 (08:12→19:19)
[2020-03-22] MEDS ORDERED: LORazepam 1 MG tablet PO ONE (09:55)
[2020-03-22] MEDS ORDERED: nicotine 21mg patch - 24 hr TD ONE (10:25)
--- NOTE | 2020-03-22 10:42 | NUR ---
Assumed care of patient at 0945 from DARIANA Solis. Pt calm and resting comfortably on bed. Pt made request for medication for anxiety and nicotine patch. Orders received and administered. Pt cooperative and calm.
[2020-03-22] MEDS ORDERED: loperamide 2mg capsule PO ONE (14:05)
[2020-03-22] MEDS ORDERED: haloperidol 5mg tablet PO ONE (15:35)
--- NOTE | 2020-03-22 15:45 | NUR ---
Pt tearful and aggitated. Med order obtained from Dr Vizcaino and administered.
--- NOTE | 2020-03-22 16:00 | NUR ---
Pt becoming aggitated. Pt worried about her house sale. Pt talking to multiple people on the phone.
--- NOTE | 2020-03-22 17:15 | NUR ---
Pt much calmer. Pt spoke with berenice about her house and her dogs. Pt berenice will check on dogs.
--- NOTE | 2020-03-22 19:04 | NUR ---
Pt states she "wished I would have just ." "I have nothing and no one." She states she is not actively suicidal but wishes to be .
[2020-03-22] MEDS: cloNIDine 0.1 mg tablet PO SCH (19:19)
[2020-03-22] MEDS: zolpidem 5mg tablet PO SCH (19:20)
[2020-03-22] MEDS: traZODone 50mg tablet PO SCH (19:20)
--- NOTE | 2020-03-22 21:03 | NUR ---
Pt is medication compliant.
--- NOTE | 2020-03-22 22:51 | NUR ---
Pt asleep on R side, respirations even and unlabored
--- NOTE | 2020-03-22 23:12 | NUR ---
Pt up to use the bedside commode, was independant and steady on her feet.
[2020-03-23] MEDS ORDERED: loperamide 2mg capsule PO ONE (01:15)
[2020-03-23] MEDS ORDERED: zolpidem 5mg tablet PO ONE (02:45)
--- NOTE | 2020-03-23 02:51 | NUR ---
Pt states she has not been able to fall back asleep since she last used the restroom. "I have had trouble sleeping for years, I just lay here and worry." "I just think and think about sll the things I need to be doing." She asks if there is anything she can get to help her go back to sleep. Dr. Maya consulted, 5mg ambien PO ordered x1
[2020-03-23] MEDS: oxyCODONE/APAP 10/325mg tablet PO PRN ×2 (05:38→15:59)
--- NOTE | 2020-03-23 05:43 | NUR ---
PT woke up in pain in her head and hips, requests PRN percocet which is given to her.
--- NOTE | 2020-03-23 06:33 | NUR ---
This RN assumed care of pt. Pt. asleep, supine in bed. normal R&R of respirations noted. Pt. in no apparent distress.
[2020-03-23] MEDS: modafinil 100mg tablet PO SCH (08:00)
[2020-03-23] MEDS: docusate sod 100mg capsule PO SCH ×2 (08:00→20:00)
[2020-03-23] MEDS: baclofen 10mg tablet PO SCH ×3 (08:12→20:25)
[2020-03-23] MEDS: ferrous sulfate 325mg tablet PO SCH ×2 (08:12→20:25)
--- NOTE | 2020-03-23 08:27 | NUR ---
Pt. ate 100% of her breakfast and now laying in bed on her back awake. Pt. is alert and oriented x3. Pt. reports she feels anxious, states, "I need to go home. I have a lot do... I'm putting my house of for sale." Pt. observed ambulating to the bathroom. Pt. denies SI/HI, A/V hallucinations.
[2020-03-23] MEDS: methenamine hippurate 1gm tablet PO SCH ×2 (08:57→20:25)
[2020-03-23] MEDS ORDERED: LORazepam 1 MG tablet PO ONE (10:05)
--- NOTE | 2020-03-23 10:30 | NUR ---
Pt. is awake and laying in bed. Pt. observed getting up to use the bathroom. Pt. report x1 formed BM. Pt. reports anxiety about discharge. Pt. received ativan 1mg po x1 with good effect.
[2020-03-23] MEDS ORDERED: nicotine 21mg patch - 24 hr TD ONE (10:50)
--- NOTE | 2020-03-23 12:30 | NUR ---
Pt.'s 5150 renewed and pt. is upset about that. Pt. making multiple phone calls to friends and family trying to coordinate a discharge plan. RN spoke with pt.'s son Emigdio with pt.'s permission. Pt.'s son is supportive of pt.'s renewed 5150.
--- NOTE | 2020-03-23 14:30 | NUR ---
Pt. was incontinent of urine. Pt.'s linens changed.
--- NOTE | 2020-03-23 16:30 | NUR ---
Pt. reporting left hip pain 8/10 and given percocet.
[2020-03-23] MEDS: zolpidem 5mg tablet PO SCH (20:25)
[2020-03-23] MEDS: cloNIDine 0.1 mg tablet PO SCH (20:25)
[2020-03-23] MEDS: traZODone 50mg tablet PO SCH (20:26)
[2020-03-24] MEDS: oxyCODONE/APAP 10/325mg tablet PO PRN ×2 (00:01→14:27)
--- NOTE | 2020-03-24 07:00 | NUR ---
PT IS AWAKE. PT TALKING WITH STAFF
--- NOTE | 2020-03-24 08:00 | NUR ---
PT IS RESTING
[2020-03-24] MEDS: docusate sod 100mg capsule PO SCH ×2 (08:24→19:56)
[2020-03-24] MEDS: ferrous sulfate 325mg tablet PO SCH ×2 (08:24→19:55)
[2020-03-24] MEDS: baclofen 10mg tablet PO SCH ×3 (08:24→20:06)
[2020-03-24] MEDS: nicotine 21mg patch - 24 hr TD SCH (08:24)
[2020-03-24] MEDS: methenamine hippurate 1gm tablet PO SCH ×2 (08:24→19:55)
--- NOTE | 2020-03-24 09:00 | NUR ---
PT IS RESTING
[2020-03-24] MEDS: modafinil 100mg tablet PO SCH (09:12)
--- NOTE | 2020-03-24 11:00 | NUR ---
PT IS TALKING WITH STAFF
--- NOTE | 2020-03-24 12:00 | NUR ---
PT IS SLEEPING
--- NOTE | 2020-03-24 13:00 | NUR ---
PT IS RESTING
--- NOTE | 2020-03-24 14:29 | NUR ---
pt states she feels "dizzy", VS stable, gave pain pill and assisted to BR.
--- NOTE | 2020-03-24 14:53 | NUR ---
up to bathroom
[2020-03-24] MEDS: LORazepam 1 MG tablet PO PRN (15:08)
--- NOTE | 2020-03-24 16:00 | NUR ---
pt is walking around. asking for pain meds. asking to call her son.
--- NOTE | 2020-03-24 17:04 | NUR ---
pt is talking with staff
[2020-03-24] MEDS: traZODone 50mg tablet PO SCH (20:06)
[2020-03-24] MEDS: cloNIDine 0.1 mg tablet PO SCH (20:06)
[2020-03-24] MEDS: zolpidem 5mg tablet PO SCH (20:06)
[2020-03-25] MEDS: docusate sod 100mg capsule PO SCH ×2 (08:00→20:00)
[2020-03-25] MEDS: nicotine 21mg patch - 24 hr TD SCH (08:20)
[2020-03-25] MEDS: ferrous sulfate 325mg tablet PO SCH ×2 (08:20→20:21)
[2020-03-25] MEDS: baclofen 10mg tablet PO SCH ×3 (08:20→20:21)
[2020-03-25] MEDS: methenamine hippurate 1gm tablet PO SCH (08:20)
[2020-03-25] MEDS: modafinil 100mg tablet PO SCH (08:23)
[2020-03-25] MEDS: oxyCODONE/APAP 10/325mg tablet PO PRN ×2 (08:28→16:57)
--- NOTE | 2020-03-25 09:30 | NUR ---
rcvd report from Jennifer RN, pt is sitting at bedside, on the phone, no needs at this time
--- NOTE | 2020-03-25 10:22 | NUR ---
pt came to nursing station, has a small lac to her right thumb from the lid of a marker, it was cleansed and bandage applied
--- NOTE | 2020-03-25 11:14 | NUR ---
pt requested a percocet, I told her one isn't available right now, she also requested a list of her medications., she is calm at this time
[2020-03-25] MEDS: LORazepam 1 MG tablet PO PRN (11:55)
--- NOTE | 2020-03-25 11:59 | NUR ---
pt is wanting ativan, given ativan, requested ice pack, given ice pack, no other needs at this time
--- NOTE | 2020-03-25 12:21 | NUR ---
pt at nurses station letting me know that the ice bag really helped, she is calm, no needs at this time
--- NOTE | 2020-03-25 13:15 | NUR ---
pt sitting on edge of bed pt eating lunch, given baclofen no needs at this time
--- NOTE | 2020-03-25 14:00 | NUR ---
pt is at nursing station, requested that she go back to her bed, as we have new patients that need to be addressed
--- NOTE | 2020-03-25 15:12 | NUR ---
pt ambulated to bathroom, no needs at this time
--- NOTE | 2020-03-25 16:23 | NUR ---
pt is on the phone, calm, no needs at this time
--- NOTE | 2020-03-25 18:10 | NUR ---
pt is sitting at bedside, eating dinner, no needs at this time
[2020-03-25 18:11] VITALS: BP 144/96
--- NOTE | 2020-03-25 19:45 | NUR ---
pt is supine in bed, eyes open, regular breathing observed, was just at the nurses station wanting evening meds, will give when ordered
[2020-03-25] MEDS: cloNIDine 0.1 mg tablet PO SCH (20:20)
[2020-03-25] MEDS: zolpidem 5mg tablet PO SCH (20:20)
[2020-03-25] MEDS: traZODone 50mg tablet PO SCH (20:20)
[2020-03-25] MEDS ORDERED: DOCU-148 PO (21:35)
[2020-03-25] MEDS ORDERED: METH1TAB32 PO (21:35)
[2020-03-25] MEDS ORDERED: ZOLP5TAB2 PO (21:35)
== END 2020-03-25 20:52 | disposition home or self-care (01) ==
LOC: ER 18:10
DX: R45.851 Suicidal ideations (principal); T43.212A Poisoning by selective serotonin and norepinephrine reuptake inhibitors, intentional self-harm, initial encounter; I10 Essential (primary) hypertension; E11.9 Type 2 diabetes mellitus without complications; G89.29 Other chronic pain; F32.9 Major depressive disorder, single episode, unspecified; Z86.73 Personal history of transient ischemic attack (TIA), and cerebral infarction without residual deficits; Z85.3 Personal history of malignant neoplasm of breast; Z90.89 Acquired absence of other organs; Z98.51 Tubal ligation status; Z98.890 Other specified postprocedural states; Z79.899 Other long term (current) drug therapy; Y92.89 Other specified places as the place of occurrence of the external cause
CPT/HCPCS: 36415; 70450; 72125; 80053; 80305; 80320; 80329; 81003; 82948; 84443; 85025; 93005; 99285; Q0163